=== PATIENT | female | born 1950 | race Caucasian/White ===

== ENCOUNTER 2016-10-06 19:30 | Emergency (ER) | payer OTHER ==
[~2016-10-06] VITALS: Ht 162.6 cm; Wt 62.0 kg
[~2016-10-06 19:30] MED LIST: CYMB30CA PO; TRAZ100T4 PO
[2016-10-06 19:33] VITALS: BP 165/98; PULSE 83; RESP 16; O2SAT 95
[2016-10-06] MEDS ORDERED: TRAZ150T75 PO (20:19)
[2016-10-06] MEDS ORDERED: HYDR-3534 PO (20:19)
[2016-10-06] MEDS ORDERED: DULO1CAP2 PO (20:19)
[2016-10-06] MEDS ORDERED: DULO1CAP3 PO (20:19)
--- NOTE | 2016-10-06 20:55 | PD ---
HPI Chief Complaint: Back/ Neck Pain or Injury Time Seen by Provider: 20:30 Travel History International Travel<30 days: No Contact w/Intl Traveler<30days: No Traveled to known affect area: No History of Present Illness HPI Patient comes in complaining of chronic neck pain. Patient states she's had surgery on her neck previously feels like her neck pain is not being well- controlled currently. Patient states that she has been taking her Lortab is not controlling her pain very well currently. Patient denies any fevers, drug use, numbness or tingling, trauma, change in bowel or bladder chest pain, shortness of breath, back pain, or abdominal pain.. Patient states she is occasionally incontinent has been going on for years and is unchanged. Pain is worse with certain movement. Denies any radiation of the pain. Patient states she believes she has high blood pressure but is uncertain if she is on any medication for it. History Past Medical Histgory Menopausal: Yes Hx Cancer: Yes (lung ca) Hx Chemotherapy: No Hx Radiation Therapy: No Social History Alcohol Use: No Tobacco Use: Yes Allergies-Medications (Allergen,Severity, Reaction): Coded Allergies: Codeine (Verified Allergy, Severe, NAUSEA & VOMITTING, 10/06/16) Iodinated Contrast Media (Verified Allergy, Unknown, "LEGS TURN IN", ) Reported Meds & Prescriptions Reported Meds & Active Scripts Active Reported Lortab (Hydrocodone-Acetaminophen) 7.5-325 Mg Tab 1 Tab PO Q6H PRN Trazodone (Trazodone HCl) 150 Mg Tab 200 Mg PO HS Duloxetine DR (Duloxetine HCl) 30 Mg Capdr 30 Mg PO HS Duloxetine DR (Duloxetine HCl) 60 Mg Capdr 60 Mg PO DAILY Review of Systems Except as stated in HPI: all other systems reviewed are Neg Physical Exam Narrative GENERAL: Well-developed, overly nourished, in no acute distress, and non-ill appearing. SKIN: Warm and dry. HEAD: Atraumatic. Normocephalic. EYES: Pupils equal and round. EOMI. No scleral icterus. No injection or drainage. ENT: No nasal bleeding or discharge. Mucous membranes pink and moist. NECK: Trachea midline. Supple. No nuclear rigidity. No tenderness or crepitus or midline cervical spine. Patient reports tenderness to palpation bilateral paravertebral cervical spinal muscles. CARDIOVASCULAR: Radial pulses 2+, tach, and equal bilaterally. Capillary refill less than 2 seconds. RESPIRATORY: No accessory muscle use. No respiratory distress. MUSCULOSKELETAL: No obvious deformities. No clubbing. No cyanosis. No edema. Full range of motion. Shoulder:FROM equal BL with passive flexion, extension, Abduction, Adduction, internal/external rotation, and pronation/supination. Sensation equal BL deltoid muscles. Pulses equal BL distal to injury. Capillary refill less than 2 seconds distal to injury and equal BL. FROM distal to injury and equal BL. Strength distal to injury equal BL. NV intact distal to injury equal BL. Flexion and extension of thumb equal BL. Equal strength and movement with abduction/adductions of BL fingers. Report Analyst strength equal BL. NEUROLOGICAL: Awake and alert. No obvious cranial nerve deficits. Motor grossly within normal limits. Normal speech. PSYCHIATRIC: Appropriate mood and affect; insight and judgment normal. Data Data Last Documented VS Vital Signs Date Time Temp Pulse Resp B/P Pulse Ox O2 Delivery O2 Flow Rate FiO2 10/06/16 20:20 18 10/06/16 19:33 83 165/98 95 Room Air MDM Medical Screen Exam Complete: Yes Emergency Medical Condition: No Narrative Course History and physical exam findings are not consistent with an emergent medical condition. She was given the option of receiving additional care, but has declined. Patient states she'll just follow-up with her primary care doctor tomorrow. Therefore the appropriate counseling recommendations were discussed with the patient and she was instructed to follow-up with her primary care physician as soon as possible for reevaluation. Patient was also informed of community resources from which she can obtain additional care. She is agreeable and verbalizes an understanding of the proposed plan. The patient states she will immediately return to the emergency department if her current complaints do not improve, new symptoms arise, or emergent condition develops. Patient ambulated out of the emergency department without difficulty. Primary Impression: Encounter for medical screening examination Disposition: [facility]-ED USE ONLY Condition: Stable Hansel Robison Oct 06, 2016 20:55
== END 2016-10-06 21:21 | disposition left against medical advice (07) ==
LOC: NEPB 19:30
DX: M54.2 Cervicalgia (principal); G89.29 Other chronic pain; Z72.0 Tobacco use
CPT/HCPCS: 99281

== ENCOUNTER 2016-10-09 06:55 | Emergency (ER) | payer OTHER ==
[~2016-10-09] VITALS: Ht 162.6 cm; Wt 62.0 kg
[~2016-10-09 06:55] MED LIST changes: -CYMB30CA PO; +DULO1CAP2 PO; +DULO1CAP3 PO; +HYDR-3534 PO; -TRAZ100T4 PO; +TRAZ150T75 PO
[2016-10-09 06:57] VITALS: BP 177/82; PULSE 88; RESP 16; TEMP 98; O2SAT 96
[2016-10-09] MEDS ORDERED: CYMB60CA PO (07:23)
[2016-10-09] MEDS ORDERED: VITA1000 PO (07:24)
[2016-10-09] MEDS ORDERED: LIDOCAINE HCL 1% 50 ML VIAL INFIL ONE (07:45)
[2016-10-09] MEDS ORDERED: BUPIVACAINE HCL PF 0.5% 10 ML VIAL INFIL ONE (07:45)
--- NOTE | 2016-10-09 07:46 | PD ---
HPI Chief Complaint: Skin Problem Time Seen by Provider: 07:45 Travel History International Travel<30 days: No Contact w/Intl Traveler<30days: No Traveled to known affect area: No History of Present Illness HPI 66-year-old female presents to the emergency Department with complaint of right thumb pain and a red streak up her right arm that she noticed this morning. She says she thinks she got bit by a bug on her right thumb yesterday and then noticed the streaking this morning. She denies fever, chills, nausea, vomiting. Is up-to-date on her tetanus vaccination. Denies paresthesias, loss of sensation, decreased range of motion, decreased strength to the affected extremity. Her friend gave her something for pain and she doesn't know what it was. No known relieving or aggravating factors. History of COPD. Allergies to codeine and iodinated contrast media. No other modifying factors or associated signs and symptoms. PFSH Past Medical History Autoimmune Disease: No Blood Disorders: No Anxiety: Yes Depression: Yes Heart Rhythm Problems: No Cancer: Yes (lung ca) Cardiovascular Problems: Yes (HTN) High Cholesterol: No Chemotherapy: No Chest Pain: No Congestive Heart Failure: No COPD: No Cerebrovascular Accident: No Diminished Hearing: No Endocrine: No Gastrointestinal Disorders: No GERD: No Genitourinary: No Headaches: Yes Hepatitis: No Hypertension: Yes (TAKES NO MEDS) Immune Disorder: No Kidney Stones: No Musculoskeletal: Yes Neurologic: Yes Psychiatric: No Reproductive: No Respiratory: Yes Migraines: No Myocardial Infarction: No Radiation Therapy: No Renal Failure: No Seizures: No Sickle Cell Disease: No Sleep Apnea: No Ulcer: No Menopausal: Yes Past Surgical History Abdominal Surgery: Yes AICD: No Appendectomy: No Arteriovenous Shunt: No Cardiac Surgery: No Section: Yes Cholecystectomy: No Ear Surgery: No Endocrine Surgery: No Eye Surgery: No Genitourinary Surgery: No Gynecologic Surgery: Yes (D&C,) Insulin Pump: No Joint Replacement: No Neurologic Surgery: No Oral Surgery: No Pacemaker: No Thoracic Surgery: No Tonsillectomy: Yes Other Surgery: Yes Social History Alcohol Use: No Tobacco Use: Yes Substance Use: No Allergies-Medications (Allergen,Severity, Reaction): Coded Allergies: Codeine (Verified Allergy, Severe, NAUSEA & VOMITTING, 10/06/16) Iodinated Contrast Media (Verified Allergy, Unknown, "LEGS TURN IN", ) Reported Meds & Prescriptions Reported Meds & Active Scripts Active Ibuprofen 800 Mg Tab 800 Mg PO Q6HR PRN Bactrim DS (Sulfamethoxazole-Trimethoprim) 800-160 Mg Tab 1 Tab PO BID 10 Days Keflex (Cephalexin) 500 Mg Cap 500 Mg PO Q6H 10 Days Reported Vitamin D-1000 (Cholecalciferol) 1,000 Unit Tab 1,000 Units PO DAILY Cymbalta DR (Duloxetine HCl) 60 Mg Capdr 60 Mg PO DAILY Trazodone (Trazodone HCl) 150 Mg Tab 200 Mg PO HS Review of Systems Except as stated in HPI: all other systems reviewed are Neg Physical Exam Narrative GENERAL: Well-nourished, well-developed female patient, in no acute distress; afebrile, nontoxic-appearing SKIN: There is an indurated area to the distal aspect of the right thumb which measures about 0.5 cm in diameter. It is fluctuant but there is no pointing or drainage. There is a zone of inflammation around it but no lymphangitis. There is a red streak noted going up the right arm up into the armpit. No right axillary lymphangitis. Right upper extremity is supple and non-tense with 2+ radial pulse and sensory intact without edema. HEAD: Atraumatic. Normocephalic. EYES: Pupils equal and round. No scleral icterus. No injection or drainage. ENT: Mucosa pink and moist. Airway patent. NECK: Trachea midline. CARDIOVASCULAR: Regular rate. RESPIRATORY: No accessory muscle use. GASTROINTESTINAL: Flat. MUSCULOSKELETAL: No obvious deformities. No clubbing. No cyanosis. No edema. NEUROLOGICAL: Awake and alert. Oriented 3. No obvious cranial nerve deficits. Motor grossly within normal limits. Normal speech. PSYCHIATRIC: Appropriate mood and affect; insight and judgment normal. Data Data Last Documented VS Vital Signs Date Time Temp Pulse Resp B/P Pulse Ox O2 Delivery O2 Flow Rate FiO2 10/09/16 06:57 98.0 88 16 177/82 96 Room Air Orders Bupivacaine Pf 0.5% Inj (Marcaine Pf 0.5 (10/09/16 07:45) Lidocaine 1% Inj (50 Ml) (Xylocaine 1% I (10/09/16 07:45) Wound Culture And Gram Stain (10/09/16 07:35) [facility] Medical Decision Making Medical Screen Exam Complete: Yes Emergency Medical Condition: Yes Medical Record Reviewed: Yes Differential Diagnosis Cellulitis, infected bug bite, abscess Narrative Course 66-year-old female with cellulitis to her right thumb that extends up her arm to her right armpit area. No lymphangitis in the right axilla. She is afebrile and nontoxic appearing. The right upper approximately supple and nontender 2+ radial pulse and sensory intact without edema. There is an area of fluctuance to the right thumb which I incised and drained. See my procedure note for incision and drainage. Wound culture pending. Patient is up-to-date on tetanus vaccination. Keflex, Bactrim, ibuprofen prescribed for home. Patient verbalizes understanding and agreement with treatment plan. Patient is medically cleared and stable for discharge. Discussed reasons to return to the emergency department. Instructed patient to follow up with primary care provider. Patient agrees with treatment plan. The patients vital signs are stable and the patient is stable for outpatient follow-up and treatment. Patient discharged home, stable and in no acute distress. Procedures Procedure Narrative INCISION AND DRAINAGE OF ABSCESS: The area was prepped and was sterilely draped. The right thumb was digitally blocked with 1% lidocaine and 0.5% bupivacaine. A number 11scalpel was used to make a pinpoint incision into the area of fluctuance. The abscess was drained. Cultures were obtained. Sterile dressing applied. Diagnosis Primary Impression: Cellulitis of right arm Referrals: Primary Care Physician Patient Instructions: Cellulitis (ED), General Instructions Departure Forms: Tests/Procedures, Work Release Enter return to work date: Oct 10, 2016 Additional Instructions: Complete full course of antibiotics Warm compresses to the affected area Keep area clean and dry Ibuprofen or Tylenol as directed and as needed for pain and inflammation Follow-up with primary care provider Return to emergency department immediately with worsening of symptoms Med/Other Pt SpecificInfo: Prescription(s) given Scripts Ibuprofen 800 Mg [id number] Mg PO Q6HR PRN (PAIN) #30 TAB Ref 0 Prov:Saundra AmadorP 10/09/16 Sulfamethoxazole-Trimethoprim (Bactrim DS)800-160 Mg Tab1 Tab PO BID 10 Days Ref 0 Prov:Saundra AmadorP 10/09/16 Cephalexin (Keflex)500 Mg Hol164 Mg PO Q6H 10 Days Ref 0 Prov:Saundra Amador 10/09/16 Disposition: 01 DISCHARGE HOME Condition: Stable Saundra Amador Oct 09, 2016 07:45
[2016-10-09] MEDS ORDERED: BACT800T5 PO (08:01)
[2016-10-09] MEDS ORDERED: CEPH-460 PO (08:01)
[2016-10-09] MEDS ORDERED: IBUP800T23 PO (08:01)
== END 2016-10-09 08:50 | disposition home or self-care (01) ==
LOC: NEPB 06:55
DX: L03.113 Cellulitis of right upper limb (principal); I10 Essential (primary) hypertension; Z72.0 Tobacco use; Z86.59 Personal history of other mental and behavioral disorders; Z87.09 Personal history of other diseases of the respiratory system; Z87.39 Personal history of other diseases of the musculoskeletal system and connective tissue; Z86.69 Personal history of other diseases of the nervous system and sense organs
CPT/HCPCS: 10060; 87070

== ENCOUNTER 2017-03-26 17:08 | Inpatient (IN) | payer OTHER ==
[~2017-03-26] VITALS: Ht 162.6 cm; Wt 65.0 kg
[~2017-03-26 17:08] MED LIST changes: +BACT800T5 PO; +CEPH-460 PO; +CYMB60CA PO; -DULO1CAP2 PO; -DULO1CAP3 PO; -HYDR-3534 PO; +IBUP800T23 PO; +VITA1000 PO
[2017-03-26 17:22] VITALS: BP 117/79; PULSE 78; RESP 20; TEMP 98.6; O2SAT 95
--- NOTE | 2017-03-26 17:27 | PD ---
Physical Exam Time Seen by Provider: 17:25 Narrative 66yo F c/o yellow eyes x 2-3 days. +orangish urine for 7-10 days. +abd pain x couple days. Denies hx of liver disease. Denies ETOH. Patient seen in triage. VS reviewed. Awaiting bed placement. Data Data Last Documented VS Vital Signs Date Time Temp Pulse Resp B/P (MAP) Pulse Ox O2 Delivery O2 Flow Rate FiO2 03/26/17 17:22 98.6 78 20 117/79 (92) 95 Room Air MDM Supervised Visit with KATERIN: Saundra Mccann Mar 26, 2017 17:27
[2017-03-26] MEDS ORDERED: SODIUM CHLORIDE 0.9% FLUSH 10 ML FLUSH IV FLUSH PRN ×2 (17:30→20:30)
[2017-03-26 18:17] VITALS: BP 112/67; PULSE 64; RESP 20; TEMP 98; O2SAT 96
[2017-03-26 18:20] LABS: BACTERIA, URINE RARE /hpf; BLOOD, URINE NEG (NEG); COMMENT (UR) CULT NOT INDICATED; CULTURE IF INDICATED CULT NOT INDICATED; GLUCOSE,URINE NEG (NEG); KETONE, URINE NEG (NEG); MUCUS URINE FEW /lpf (OCC); NITRITE,URINE NEG (NEG); PH, URINE 5.5 (5.0-8.5); SQUAMOUS EPITHELIAL CELL URINE 3 /hpf (0-5)
--- NOTE | 2017-03-26 18:20 | PD ---
HPI Chief Complaint: Abdominal Pain Time Seen by Provider: 18:13 Travel History International Travel<30 days: No Contact w/Intl Traveler<30days: No Traveled to known affect area: No History of Present Illness HPI 66 YO F with PMH of HTN, COPD, MDD, chronic pain presents to the ED for evaluation of 3 week history of intermittent nausea, mild abdominal pain, dark yellow/red urine. The patient states that she thought she was just dehydrated until yesterday when she visited her daughter and her daughter stated that the "whites of your eyes are turning yellow." She denies changes in bowel habits, melena, hematochezia. She does not take Tylenol or regular basis. She endorses unprotected sex with a single male partner for years. No history of IVDA. PFSH Past Medical History Autoimmune Disease: No Blood Disorders: No Anxiety: Yes Depression: Yes Heart Rhythm Problems: No Cancer: Yes (lung ca) Cardiovascular Problems: Yes (HTN) High Cholesterol: No Chemotherapy: No Chest Pain: No Congestive Heart Failure: No COPD: No Cerebrovascular Accident: No Diminished Hearing: No Endocrine: No Gastrointestinal Disorders: No GERD: No Genitourinary: No Headaches: Yes Hepatitis: No Hypertension: Yes (TAKES NO MEDS) Immune Disorder: No Kidney Stones: No Musculoskeletal: Yes Neurologic: Yes Psychiatric: No Reproductive: No Respiratory: Yes Migraines: No Myocardial Infarction: No Radiation Therapy: No Renal Failure: No Seizures: No Sickle Cell Disease: No Sleep Apnea: No Ulcer: No Menopausal: Yes Past Surgical History Abdominal Surgery: Yes AICD: No Appendectomy: No Arteriovenous Shunt: No Cardiac Surgery: No Section: Yes Cholecystectomy: No Ear Surgery: No Endocrine Surgery: No Eye Surgery: No Genitourinary Surgery: No Gynecologic Surgery: Yes (D&C,) Insulin Pump: No Joint Replacement: No Neurologic Surgery: No Oral Surgery: No Pacemaker: No Thoracic Surgery: No Tonsillectomy: Yes Other Surgery: Yes Social History Alcohol Use: No Tobacco Use: Yes Substance Use: No Allergies-Medications (Allergen,Severity, Reaction): Coded Allergies: codeine (Unverified Allergy, Severe, NAUSEA & VOMITTING, 03/10/17) Iodinated Contrast- Oral and IV Dye (Unverified Allergy, Unknown, "LEGS TURN IN", 03/10/17) Reported Meds & Prescriptions Reported Meds & Active Scripts Active Reported Lisinopril 20 Mg Tab 20 Mg PO HS Naproxen 500 Mg Tab 500 Mg PO BID Trazodone (Trazodone HCl) 100 Mg Tablet 200 Mg PO HS Hydrocodone-Acetaminophen 7.5-325 mg Tab 1 Tab PO Q6H PRN Duloxetine DR (Duloxetine HCl) 30 Mg Capdr 30 Mg PO HS Amlodipine (Amlodipine Besylate) 10 Mg Tab 10 Mg PO DAILY Review of Systems Except as stated in HPI: all other systems reviewed are Neg Physical Exam Narrative GENERAL: Well-nourished, well-developed pleasant white female in no acute distress. SKIN: Focused skin assessment warm/dry. Jaundiced. HEAD: Normocephalic. EYES: ++ scleral icterus. No injection or drainage. NECK: Supple, trachea midline. No JVD or lymphadenopathy. CARDIOVASCULAR: Regular rate and rhythm without murmurs, gallops, or rubs. RESPIRATORY: Breath sounds clear and equal bilaterally. No accessory muscle use. GASTROINTESTINAL: Abdomen soft, nondistended. Very mildly TTP in the RUQ. MUSCULOSKELETAL: No cyanosis, or edema. BACK: Nontender without obvious deformity. No CVA tenderness. Data Data Last Documented VS Vital Signs Date Time Temp Pulse Resp B/P (MAP) Pulse Ox O2 Delivery O2 Flow Rate FiO2 03/26/17 19:44 60 20 126/76 (93) 96 Room Air 03/26/17 18:17 98.0 Orders Orders Complete Blood Count With Diff (03/26/17 17:27) Comprehensive Metabolic Panel (03/26/17 17:27) Lipase (03/26/17 17:27) Prothrombin Time / Inr (Pt) (03/26/17 17:27) Act Partial Throm Time (Ptt) (03/26/17 17:27) Urinalysis - C+S If Indicated (03/26/17 17:27) Iv Access Insert/Monitor (03/26/17 17:27) Ecg Monitoring (03/26/17 17:27) Oximetry (03/26/17 17:27) Sodium Chloride 0.9% Flush (Ns Flush) (03/26/17 17:30) Admit Order (Ed Use Only) (03/26/17 20:17) Admit To Inpatient (03/26/17 ) Vital Signs (Adult) Q4H (03/26/17 20:17) Activity Oob With Assistance (03/26/17 20:17) Cylinder Die Machine Helper / Telemetry .CONTINUOUS (03/26/17 20:17) Diet Heart Healthy (03/27/17 Breakfast) Sodium Chlor 0.9% 1000 Ml Inj (Ns 1000 M (03/26/17 21:00) Sodium Chloride 0.9% Flush (Ns Flush) (03/26/17 20:30) Sodium Chloride 0.9% Flush (Ns Flush) (03/26/17 21:00) Comprehensive Metabolic Panel (03/27/17 06:00) Complete Blood Count With Diff (03/27/17 06:00) Lipase (03/27/17 06:00) Naloxone Inj (Narcan Inj) (03/26/17 20:30) Inpatient Certification (03/26/17 ) Us Abdomen Liver (03/26/17 ) Hepatitis Profile (03/26/17 20:17) Tylenol (Acetaminophen) (03/26/17 20:17) Labs Laboratory Tests Test 03/26/17 17:51 White Blood Count 7.3 TH/MM3 Red Blood Count 5.62 MIL/MM3 Hemoglobin 16.2 GM/DL Hematocrit 48.7 % Mean Corpuscular Volume 86.6 FL Mean Corpuscular Hemoglobin 28.8 PG Mean Corpuscular Hemoglobin Concent 33.3 % Red Cell Distribution Width 17.5 % Platelet Count 209 TH/MM3 Mean Platelet Volume 10.0 FL CBC Comment AUTO DIFF Differential Total Cells Counted 100 Neutrophils % (Manual) 61 % Band Neutrophils % 2 % Lymphocytes % 25 % Monocytes % 9 % Eosinophils % 2 % Basophils % 1 % Neutrophils # (Manual) 4.6 TH/MM3 Differential Comment FINAL DIFF MANUAL Platelet Estimate NORMAL Platelet Morphology Comment ENLARGED Prothrombin Time 10.9 SEC Prothromb Time International Ratio 1.0 RATIO Activated Partial Thromboplast Time 36.8 SEC Urine Color DARK-BROWN Urine Turbidity HAZY Urine pH 5.5 Urine Specific [place] 1.021 Urine Protein TRACE mg/dL Urine Glucose (UA) NEG mg/dL Urine Ketones NEG mg/dL Urine Occult Blood NEG Urine Nitrite NEG Urine Bilirubin LARGE Urine Urobilinogen 8.0 MG/DL Urine Leukocyte Esterase NEG Urine RBC 2 /hpf Urine WBC 4 /hpf Urine Squamous Epithelial Cells 3 /hpf Urine Amorphous Sediment RARE Urine Bacteria RARE /hpf Urine Mucus FEW /lpf Microscopic Urinalysis Comment CULT NOT INDICATED Blood Urea Nitrogen 7 MG/DL Creatinine 1.06 MG/DL Random Glucose 82 MG/DL Total Protein 7.5 GM/DL Albumin 3.2 GM/DL Calcium Level 9.1 MG/DL Alkaline Phosphatase 312 U/L Aspartate Amino Transf (AST/SGOT) 1499 U/L Alanine Aminotransferase (ALT/SGPT) 1090 U/L Total Bilirubin 10.0 MG/DL Sodium Level 139 MEQ/L Potassium Level 4.6 MEQ/L Chloride Level 106 MEQ/L Carbon Dioxide Level 27.9 MEQ/L Anion Gap 5 MEQ/L Lipase 341 U/L Acetaminophen Level LESS THAN 2.0 MCG/ML MDM Medical Decision Making Medical Screen Exam Complete: Yes Emergency Medical Condition: Yes Differential Diagnosis Hepatitis versus biliary obstruction versus liver failure versus other Narrative Course 66 YO F with PMH of HTN, COPD, MDD, chronic pain presents to the ED for evaluation of 3 week history of intermittent nausea, mild abdominal pain, dark yellow/red urine. The patient states that she thought she was just dehydrated until yesterday when she visited her daughter and her daughter stated that the "whites of your eyes are turning yellow." She denies changes in bowel habits, melena, hematochezia. She does not take Tylenol or regular basis. She endorses unprotected sex with a single male partner for years. No history of IVDA. Vitals reviewed. Physical exam reveals a jaundiced white female in no acute distress. There is mild right upper quadrant tenderness to palpation but the physical exam is otherwise unremarkable. CBC: WBC 7.3. Hemoglobin 16.2. Enlarged platelets. CMP: Bilirubin 10.0 AST 1499. ALT 1090. Alkaline phosphatase 312. Coags: INR 1.0 UA: Large bilirubin. 8.0 urobilinogen Tox Screen: Tylenol less than 2.0 I discussed the results of the workup with the patient. She is agreeable to admission. I spoke with Dr. Doty who agrees to accept the patient to the medicine service. Please see medicine notes for disposition. Irene Wilson Mar 26, 2017 18:20
[2017-03-26 18:21] LABS: URINE COLOR DARK-BROWN (YELLW/STRAW)
[2017-03-26 18:22] LABS: APTT (PATIENT) 36.8 SEC (24.3-30.1); PROTHROMBIN TIME - PATIENT 10.9 SEC (9.8-11.6)
[2017-03-26 18:29] LABS: HEMATOCRIT 48.7 % (35.0-46.0); MEAN CELL VOLUME 86.6 FL (80.0-100.0); MEAN CORPUSCULAR HEMOGLOBIN 28.8 PG (27.0-34.0); MEAN CORPUSCULAR HGB CONC 33.3 % (32.0-36.0); PLATELET COUNT 209 TH/MM3 (150-450); RED BLOOD COUNT 5.62 MIL/MM3 (4.00-5.30); RED CELL DISTRIBUTION WIDTH 17.5 % (11.6-17.2); WHITE BLOOD COUNT 7.3 TH/MM3 (4.0-11.0)
[2017-03-26 18:32] LABS: ANION GAP 5 MEQ/L (5-15); BICARBONATE 27.9 MEQ/L (21.0-32.0); BLOOD UREA NITROGEN 7 MG/DL (7-18); CHLORIDE 106 MEQ/L (98-107); POTASSIUM 4.6 MEQ/L (3.5-5.1); SODIUM (NA) 139 MEQ/L (136-145)
[2017-03-26 18:33] LABS: HEMO FLAGS AUTO DIFF
[2017-03-26] MEDS ORDERED: LISI-515 PO (18:37)
[2017-03-26] MEDS ORDERED: DULO1CAP3 PO (18:37)
[2017-03-26] MEDS ORDERED: HYDR-3580 PO (18:37)
[2017-03-26] MEDS ORDERED: NAPR500T PO (18:37)
[2017-03-26] MEDS ORDERED: TRAZ50TA12 PO (18:37)
[2017-03-26] MEDS ORDERED: AMLO10TA2 PO (18:37)
[2017-03-26] MEDS ORDERED: DULO1CAP2 PO (18:37)
[2017-03-26] MEDS ORDERED: TRAZ100T6 PO (18:37)
[2017-03-26 18:38] LABS: ALKALINE PHOSPHATASE 312 U/L (45-117); ALT (GPT) 1090 U/L (10-53); AST (GOT) 1499 U/L (15-37)
[2017-03-26 19:44] VITALS: BP 126/76; PULSE 60; RESP 20; O2SAT 96
[2017-03-26 19:47] LABS: BANDS 2 % (0-6); BASOPHILS 1 % (0-2); EOSINOPHILS 2 % (0-4); NEUTROPHIL # MANUAL DIFF 4.6 TH/MM3 (1.8-7.7); PLATELET ESTIMATE SMEAR NORMAL (NORMAL); POLYS (SEG NEUTROPHILS) 61 % (16-70); SCAN/DIFF FINAL DIFF MANUAL; WBC DIFF SAMPLE 100
[2017-03-26 19:48] LABS: PLATELET MORPHOLOGY ENLARGED (NORMAL)
[2017-03-26] MEDS ORDERED: NALOXONE HCL 0.4 MG/ML AMP IV PRN (20:30)
[2017-03-26 21:02] VITALS: BP 125/75; PULSE 61; RESP 20; O2SAT 97
[2017-03-26] MEDS: SODIUM CHLORIDE 0.9% FLUSH 10 ML FLUSH IV FLUSH SCH (21:02)
[2017-03-26] MEDS: SODIUM CHLOR 0.9% 1000 ML INJ 1,000 ML IV SCH (21:02)
--- NOTE | 2017-03-26 21:43 | RADRPT ---
EXAM DATE/TIME: 03/26/2017 20:35 [facility] COMPARISON: No previous studies available for comparison. INDICATIONS : Acute liver failure. MEDICAL HISTORY : Hypertension. Depression. Anxeity. Carcinoma, lung. SURGICAL HISTORY : Tonsillectomy. section. D & C. Emir placement in spine. ENCOUNTER: Initial ACUITY: 1 day PAIN SCORE: 0/10 LOCATION: Bilateral upper quadrant MEASUREMENTS: LIVER: 17.9 cm length COMMON DUCT: 5 mm RIGHT KIDNEY: 10.3 x 4.2 x 3.9 cm SPLEEN: 11.6 cm length FINDINGS: LIVER: Normal echotexture without focal lesion or ductal dilatation. There is an echogenic area in the left lobe likely related to fat in the falciform ligament region. COMMON DUCT: No intraluminal mass or stone visualized. GALLBLADDER: There is a 0.5 cm echogenic nonmobile mass seen in the gallbladder wall without distinct shadowing. T he gallbladder wall does appear thickened at 6 mm. PANCREAS: The visualized portions are within normal limits. RIGHT KIDNEY: No hydronephrosis, stone or mass. SPLEEN: No focal lesion. There appears to be an adjacent 1.7 cm splenule. CONCLUSION: 0.5 cm echogenic nonmobile non-shadowing focus within the gallbladder without shadowing. This is thou ght to most likely represent a polyp. However, a stone cannot absolutely be excluded. Typically, ston es demonstrate shadowing and are mobile. The gallbladder wall is thickened. The gallbladder wall thi ckening is nonspecific. It can be seen with generalized hepatic disease. If the patient has signs of cholecystitis, a HIDA scan could be performed. Alvaro Catalan MD on March 26, 2017 at 21:37 Board Certified Radiologist. This report was verified electronically.
[2017-03-26 21:57] VITALS: BP 122/77; PULSE 50; RESP 17; TEMP 97; O2SAT 95
[2017-03-26 22:40] VITALS: PULSE 64
[2017-03-27] VITALS: BP 139/68; PULSE 80; RESP 19; TEMP 97.6; O2SAT 94
--- NOTE | 2017-03-27 03:45 | HHI.HP ---
HPI Service [facility] Primary Care Physician Jose Victoria MD Admission Diagnosis hyperbilirubinemia, elevated LFTs Diagnoses: Chief Complaint: abdominal pain and jaundice Travel History International Travel<30 Days: No Contact w/Intl Traveler <30 Da: No Traveled to Known Affected Are: No History of Present Illness Written by JAKI Teixeira acting as scribe for [Lalitha] on 03/27/17 at 03: 34. 66 y/o female with a history of COPD, Depression, Anxiety, and HTN presented to the ED with complaints of abdominal pain and jaundice. She states she has had right lower abdominal pain for the last 10 days and for the last 2 days she had associated dark urine, and jaundice. She states her stools for black in color but it is now back to normal. She does take 1/2 a Lortab daily for chronic pain. She denies any Iv drug use or any new partners. Denies any chest pain, sob , fever or chills. Review of Systems Except as stated in HPI: all other systems reviewed are Neg Past Family Social History Past Medical History COPD Depression Anxiety HTN Past Surgical History neck surgery toe repair c section tonsillectomy Hip replacement Reported Medications Reported Meds & Active Scripts Active Reported Lisinopril 20 Mg Tab 20 Mg PO HS Naproxen 500 Mg Tab 500 Mg PO BID Trazodone (Trazodone HCl) 100 Mg Tablet 200 Mg PO HS Hydrocodone-Acetaminophen 7.5-325 mg Tab 1 Tab PO Q6H PRN Duloxetine DR (Duloxetine HCl) 30 Mg Capdr 30 Mg PO HS Amlodipine (Amlodipine Besylate) 10 Mg Tab 10 Mg PO DAILY Allergies: Coded Allergies: codeine (Unverified Allergy, Severe, NAUSEA & VOMITTING, 03/10/17) Iodinated Contrast- Oral and IV Dye (Unverified Allergy, Unknown, "LEGS TURN IN", 03/10/17) Active Ordered Medications Current Medications Medications (Trade) Dose Ordered Sig/Quita Route Start Time Stop Time Status Last Admin Sodium Chloride 1,000 ml @ 100 mls/hr Q10H IV 03/26/17 21:00 03/26/17 21:02 (NS Flush) 2 ml UNSCH PRN IV FLUSH 03/26/17 20:30 (NS Flush) 2 ml BID IV FLUSH 03/26/17 21:00 03/26/17 21:02 (Narcan Inj) 0.4 mg UNSCH PRN IV 03/26/17 20:30 Family History Dad: [place] Social History Tobacco use: 1 pack every 4 days Alcohol use: Denies Illicit drug use: Marijuana She lives alone and still continues to drive. Physical Exam Vital Signs Vital Signs Date Time Temp Pulse Resp B/P (MAP) Pulse Ox O2 Delivery O2 Flow Rate FiO2 03/27/17 00:00 97.6 80 19 139/68 (91) 94 03/26/17 21:57 97.0 50 17 122/77 (92) 95 03/26/17 21:14 03/26/17 21:02 61 20 125/75 (92) 97 Room Air 03/26/17 19:44 60 20 126/76 (93) 96 Room Air 03/26/17 18:17 21 03/26/17 18:17 98.0 64 20 112/67 (82) 96 Room Air 03/26/17 17:22 98.6 78 20 117/79 (92) 95 Room Air Physical Exam GENERAL: This is a well-nourished, well-developed patient, in no apparent distress. SKIN: No rashes, ecchymoses or lesions. Cool and dry. HEAD: Atraumatic. Normocephalic. EYES: Pupils equal round and reactive. ENT: Nose without bleeding, purulent drainage or septal hematoma.Airway patent. NECK: Trachea midline. No JVD or lymphadenopathy. Supple, nontender, no meningeal signs. CARDIOVASCULAR: Regular rate and rhythm without murmurs, gallops, or rubs. RESPIRATORY: Clear to auscultation. Breath sounds equal bilaterally. No wheezes , rales, or rhonchi. GASTROINTESTINAL: Abdomen soft, Right abdomen tenderness, nondistended. No hepato-splenomegaly, or palpable masses. No guarding. MUSCULOSKELETAL: Extremities without clubbing, cyanosis, or edema. No joint tenderness, effusion, or edema noted. No calf tenderness. NEUROLOGICAL: Awake and alert. Motor and sensory grossly within normal limits. Normal speech. Laboratory Laboratory Tests Test 03/26/17 17:51 White Blood Count 7.3 Red Blood Count 5.62 Hemoglobin 16.2 Hematocrit 48.7 Mean Corpuscular Volume 86.6 Mean Corpuscular Hemoglobin 28.8 Mean Corpuscular Hemoglobin Concent 33.3 Red Cell Distribution Width 17.5 Platelet Count 209 Mean Platelet Volume 10.0 CBC Comment AUTO DIFF Differential Total Cells Counted 100 Neutrophils % (Manual) 61 Band Neutrophils % 2 Lymphocytes % 25 Monocytes % 9 Eosinophils % 2 Basophils % 1 Neutrophils # (Manual) 4.6 Differential Comment FINAL DIFF MANUAL Platelet Estimate NORMAL Platelet Morphology Comment ENLARGED Prothrombin Time 10.9 Prothromb Time International Ratio 1.0 Activated Partial Thromboplast Time 36.8 Urine Color DARK-BROWN Urine Turbidity HAZY Urine pH 5.5 Urine Specific [place] 1.021 Urine Protein TRACE Urine Glucose (UA) NEG Urine Ketones NEG Urine Occult Blood NEG Urine Nitrite NEG Urine Bilirubin LARGE Urine Urobilinogen 8.0 Urine Leukocyte Esterase NEG Urine RBC 2 Urine WBC 4 Urine Squamous Epithelial Cells 3 Urine Amorphous Sediment RARE Urine Bacteria RARE Urine Mucus FEW Microscopic Urinalysis Comment CULT NOT INDICATED Blood Urea Nitrogen 7 Creatinine 1.06 Random Glucose 82 Total Protein 7.5 Albumin 3.2 Calcium Level 9.1 Alkaline Phosphatase 312 Aspartate Amino Transf (AST/SGOT) 1499 Alanine Aminotransferase (ALT/SGPT) 1090 Total Bilirubin 10.0 Sodium Level 139 Potassium Level 4.6 Chloride Level 106 Carbon Dioxide Level 27.9 Anion Gap 5 Lipase 341 Acetaminophen Level LESS THAN 2.0 Result Diagram: 03/26/17 1751 03/26/17 1751 Imaging Last Impressions Liver Ultrasound 03/26/17 0000 Signed Impressions: Service Date/Time: February 20:35 - CONCLUSION: 0.5 cm echogenic nonmobile non-shadowing focus within the gallbladder without shadowing. This is thought to most likely represent a polyp. However, a stone cannot absolutely be excluded. Typically, stones demonstrate shadowing and are mobile. The gallbladder wall is thickened. The gallbladder wall thickening is nonspecific. It can be seen with generalized hepatic disease. If the patient has signs of cholecystitis, a HIDA scan could be performed. Alvaro Catalan MD Capbettyi VTE Risk Assessment Caprini VTE Risk Assessment: No/Low Risk (score <= 1) Caprini Risk Assessment Model Point Value = 1 Point Value = 2 Point Value = 3 Point Value = 5 Age 41-60 Minor surgery BMI > 25 kg/m2 Swollen legs Varicose veins or History of unexplained or recurrent spontaneous Oral contraceptives or hormone replacement Sepsis (< 1 month) Serious lung disease, including pneumonia (< 1 month) Abnormal pulmonary function Acute myocardial infarction Congestive heart failure (< 1 month) History of inflammatory bowel disease Medical patient at bed rest Age 61-74 Arthroscopic surgery Major open surgery (> 45 min) Laparoscopic surgery (> 45 min) Malignancy Confined to bed (> 72 hours) Immobilizing plaster cast Central venous access Age >= 75 History of VTE Family history of VTE Factor V Leiden Prothrombin [id number] Lupus anticoagulant Anticardiolipin antibodies Elevated serum homocysteine Heparin-induced thrombocytopenia Other congenital or acquired thrombophilia Stroke (< 1 month) Elective arthroplasty Hip, pelvis, or leg fracture Acute spinal cord injury (< 1 month) Prophylaxis Regimen Total Risk Factor Score Risk Level Prophylaxis Regimen 0-1 Low Early ambulation 2 Moderate Order ONE of the following: *Sequential Compression Device (SCD) *Heparin 5000 units SQ BID 3-4 Higher Order ONE of the following medications: *Heparin 5000 units SQ TID *Enoxaparin/Lovenox 40 mg SQ daily (WT < 150 kg, CrCl > 30 mL/min) *Enoxaparin/Lovenox 30 mg SQ daily (WT < 150 kg, CrCl > 10-29 mL/min) *Enoxaparin/Lovenox 30 mg SQ BID (WT < 150 kg, CrCl > 30 mL/min) AND/OR *Sequential Compression Device (SCD) 5 or more Highest Order ONE of the following medications: *Heparin 5000 units SQ TID (Preferred with Epidurals) *Enoxaparin/Lovenox 40 mg SQ daily (WT < 150 kg, CrCl > 30 mL/min) *Enoxaparin/Lovenox 30 mg SQ daily (WT < 150 kg, CrCl > 10-29 mL/min) *Enoxaparin/Lovenox 30 mg SQ BID (WT < 150 kg, CrCl > 30 mL/min) AND *Sequential Compression Device (SCD) Assessment and Plan Problem List: (1) Acute liver failure ICD Code: K72.00 - Acute and subacute hepatic failure without coma (2) HTN (hypertension) ICD Code: I10 - Essential (primary) hypertension Assessment and Plan 66 y/o female with a history of COPD, Depression, Anxiety, and HTN presented to the ED with complaints of abdominal pain and jaundice. Acute Liver Failure, AST 1499, ALT 1090, acetaminophen less than 2.0, bilirubin 10 Liver US reviewed and showed 0.5 cm echogenic nonmobile shadowing focus within the gallbladder without shadowing, most likely represents a polyp, however a stone cannot be absolutely be excluded. Gallbladder is thickened. -Consult GI for recommendations -Hepatitis profile ordered -IVF for hydration -Pain management IV morphine -CMP in AM HTN, chronic -Resume home medication lisinopril and Norvasc Depression and Anxiety, chronic -Resume home medications DVT prophylaxis: SCDs This note was transcribed by scribe [Lilibeth Urban]. I, Dr. Kathryn Doty personally performed the history, physical exam, and medical decision making; and confirmed the accuracy of the information in the transcribed note. Authenticated by Dr. Kathryn Doty on 03/27/17 at 03:34. Discussed Condition With Patient, ER provider and RN Physician Certification 2 Midnight Certification Type: Admission for Inpatient Services Order for Inpatient Services The services are ordered in accordance with Medicare regulations or non- Medicare payer requirements, as applicable. In the case of services not specified as inpatient-only, they are appropriately provided as inpatient services in accordance with the 2-midnight benchmark. Estimated LOS (days): 2 days is the estimated time the patient will need to remain in the hospital, assuming treatment plan goals are met and no additional complications. Post-Hospital Plan: [place] Lilibeth Urban Mar 27, 2017 03:45 Kathryn Doty MD Mar 27, 2017 09:32
[2017-03-27 04:00] VITALS: BP 214/79; PULSE 65; RESP 17; TEMP 98.3; O2SAT 98
[2017-03-27] MEDS ORDERED: DULoxetine HCl DR 20 MG CAP PO ONE (04:00)
[2017-03-27] MEDS ORDERED: traZODone HCL 50 MG TAB PO ONE (04:00)
[2017-03-27] MEDS ORDERED: MORPHINE SULFATE 4 MG/ML INJ IV PUSH PRN (04:15)
[2017-03-27] MEDS: SODIUM CHLOR 0.9% 1000 ML INJ 1,000 ML IV SCH (06:15)
[2017-03-27 08:00] VITALS: BP 119/76; PULSE 63; RESP 17; TEMP 95.7; O2SAT 94
[2017-03-27 08:17] LABS: HEMATOCRIT 44.7 % (35.0-46.0); MEAN CELL VOLUME 86.5 FL (80.0-100.0); MEAN CORPUSCULAR HEMOGLOBIN 27.9 PG (27.0-34.0); MEAN CORPUSCULAR HGB CONC 32.3 % (32.0-36.0); PLATELET COUNT 182 TH/MM3 (150-450); RED BLOOD COUNT 5.17 MIL/MM3 (4.00-5.30); RED CELL DISTRIBUTION WIDTH 17.3 % (11.6-17.2); WHITE BLOOD COUNT 5.7 TH/MM3 (4.0-11.0)
[2017-03-27 08:26] LABS: HEMO FLAGS AUTO DIFF
[2017-03-27 08:45] LABS: ALT (GPT) 893 U/L (10-53); ANION GAP 5 MEQ/L (5-15); BLOOD UREA NITROGEN 6 MG/DL (7-18); CHLORIDE 107 MEQ/L (98-107); GLOMERULAR FILTRATION RATE 72 ML/MIN (>89); POTASSIUM 3.9 MEQ/L (3.5-5.1); SODIUM (NA) 138 MEQ/L (136-145)
[2017-03-27 08:59] LABS: ALKALINE PHOSPHATASE 256 U/L (45-117); AST (GOT) 1184 U/L (15-37); TOTAL BILIRUBIN ADULT 9.3 MG/DL (0.2-1.0)
[2017-03-27] MEDS: SODIUM CHLORIDE 0.9% FLUSH 10 ML FLUSH IV FLUSH SCH (09:00)
[2017-03-27 09:04] LABS: BANDS 3 % (0-6); EOSINOPHILS 4 % (0-4); NEUTROPHIL # MANUAL DIFF 3.4 TH/MM3 (1.8-7.7); PLATELET ESTIMATE SMEAR NORMAL (NORMAL); PLATELET MORPHOLOGY NORMAL (NORMAL); POLYS (SEG NEUTROPHILS) 57 % (16-70); SCAN/DIFF FINAL DIFF MANUAL; WBC DIFF SAMPLE 100
[2017-03-27] MEDS ORDERED: FAMOTIDINE 20 MG TAB PO SCH (09:30)
--- NOTE | 2017-03-27 09:35 | HHI.PR ---
Subjective Remarks 66 y/o female with a history of COPD, Depression, Anxiety, and HTN presented to the ED with complaints of abdominal pain and jaundice. She states she has had right lower abdominal pain for the last 10 days and for the last 2 days she had associated dark urine, and jaundice. She states her stools for black in color but it is now back to normal. She does take 1/2 a Lortab daily for chronic pain. She denies any Iv drug use or any new partners. Denies any chest pain, sob , fever or chills. 03-27 Will order an MRCP consult gastroenterology Await hepatitis profile A.m. labs Continue home medications except for pain control Switch to IV pain meds Objective Vitals Vital Signs Date Time Temp Pulse Resp B/P (MAP) Pulse Ox O2 Delivery O2 Flow Rate FiO2 03/27/17 04:00 98.3 65 17 214/79 (124) 98 03/27/17 00:00 97.6 80 19 139/68 (91) 94 03/26/17 22:40 64 03/26/17 21:57 97.0 50 17 122/77 (92) 95 03/26/17 21:14 03/26/17 21:02 61 20 125/75 (92) 97 Room Air 03/26/17 19:44 60 20 126/76 (93) 96 Room Air 03/26/17 18:17 21 03/26/17 18:17 98.0 64 20 112/67 (82) 96 Room Air 03/26/17 17:22 98.6 78 20 117/79 (92) 95 Room Air I/O 03/26/17 03/26/17 03/26/17 03/27/17 03/27/17 03/27/17 07:00 15:00 23:00 07:00 15:00 23:00 Intake Total 1307 ml Balance 1307 ml Intake Oral 480 ml IV Total 827 ml # Voids 2 # Bowel Movements 0 Result Diagram: 03/27/1772603/27/17726 Other Results Laboratory Tests Test 03/26/17 17:51 03/27/17 07:27 White Blood Count 7.3 TH/MM3 5.7 TH/MM3 Red Blood Count 5.62 MIL/MM3 5.17 MIL/MM3 Hemoglobin 16.2 GM/DL 14.5 GM/DL Hematocrit 48.7 % 44.7 % Mean Corpuscular Volume 86.6 FL 86.5 FL Mean Corpuscular Hemoglobin 28.8 PG 27.9 PG Mean Corpuscular Hemoglobin Concent 33.3 % 32.3 % Red Cell Distribution Width 17.5 % 17.3 % Platelet Count 209 TH/MM3 182 TH/MM3 Mean Platelet Volume 10.0 FL 9.8 FL CBC Comment AUTO DIFF AUTO DIFF Differential Total Cells Counted 100 100 Neutrophils % (Manual) 61 % 57 % Band Neutrophils % 2 % 3 % Lymphocytes % 25 % 23 % Monocytes % 9 % 13 % Eosinophils % 2 % 4 % Basophils % 1 % Neutrophils # (Manual) 4.6 TH/MM3 3.4 TH/MM3 Differential Comment FINAL DIFF MANUAL FINAL DIFF MANUAL Platelet Estimate NORMAL NORMAL Platelet Morphology Comment ENLARGED NORMAL Prothrombin Time 10.9 SEC Prothromb Time International Ratio 1.0 RATIO Activated Partial Thromboplast Time 36.8 SEC Urine Color DARK-BROWN Urine Turbidity HAZY Urine pH 5.5 Urine Specific [place] 1.021 Urine Protein TRACE mg/dL Urine Glucose (UA) NEG mg/dL Urine Ketones NEG mg/dL Urine Occult Blood NEG Urine Nitrite NEG Urine Bilirubin LARGE Urine Urobilinogen 8.0 MG/DL Urine Leukocyte Esterase NEG Urine RBC 2 /hpf Urine WBC 4 /hpf Urine Squamous Epithelial Cells 3 /hpf Urine Amorphous Sediment RARE Urine Bacteria RARE /hpf Urine Mucus FEW /lpf Microscopic Urinalysis Comment CULT NOT INDICATED Blood Urea Nitrogen 7 MG/DL 6 MG/DL Creatinine 1.06 MG/DL 0.80 MG/DL Random Glucose 82 MG/DL 85 MG/DL Total Protein 7.5 GM/DL 6.0 GM/DL Albumin 3.2 GM/DL 2.4 GM/DL Calcium Level 9.1 MG/DL 8.0 MG/DL Alkaline Phosphatase 312 U/L 256 U/L Aspartate Amino Transf (AST/SGOT) 1499 U/L 1184 U/L Alanine Aminotransferase (ALT/SGPT) 1090 U/L 893 U/L Total Bilirubin 10.0 MG/DL 9.3 MG/DL Sodium Level 139 MEQ/L 138 MEQ/L Potassium Level 4.6 MEQ/L 3.9 MEQ/L Chloride Level 106 MEQ/L 107 MEQ/L Carbon Dioxide Level 27.9 MEQ/L 26.0 MEQ/L Anion Gap 5 MEQ/L 5 MEQ/L Lipase 341 U/L 336 U/L Acetaminophen Level LESS THAN 2.0 MCG/ML Red Cell Morphology Comment NORMAL Estimat Glomerular Filtration Rate 72 ML/MIN Imaging Last Impressions Liver Ultrasound 03/26/17 0000 Signed Impressions: Service Date/Time: February 20:35 - CONCLUSION: 0.5 cm echogenic nonmobile non-shadowing focus within the gallbladder without shadowing. This is thought to most likely represent a polyp. However, a stone cannot absolutely be excluded. Typically, stones demonstrate shadowing and are mobile. The gallbladder wall is thickened. The gallbladder wall thickening is nonspecific. It can be seen with generalized hepatic disease. If the patient has signs of cholecystitis, a HIDA scan could be performed. Alvaro Catalan MD Objective Remarks GENERAL: Awake alert and oriented talkative and cooperative SKIN: Warm and dry. Some jaundice HEAD: Atraumatic. Normocephalic. EYES: Pupils equal and round. Some scleral icterus. No injection or drainage. ENT: No nasal bleeding or discharge. Mucous membranes pink and moist. Tongue is midline NECK: Trachea midline. No JVD. Supple CARDIOVASCULAR: Regular rate and rhythm. S1-S2 no S3 or S4 no heave or thrill or rub or gallop RESPIRATORY: No accessory muscle use. Clear to auscultation. Breath sounds equal bilaterally. GASTROINTESTINAL: Abdomen soft, non-tender, nondistended. Hepatic and splenic margins not palpable. MUSCULOSKELETAL: Extremities without clubbing, cyanosis, or edema. No obvious deformities. NEUROLOGICAL: Awake and alert. No obvious cranial nerve deficits. Motor grossly within normal limits. Five out of 5 muscle strength in the arms and legs. Normal speech. PSYCHIATRIC: Appropriate mood and affect; insight and judgment normal. Medications and IVs Current Medications Sodium Chloride (NS Flush) 2 ml UNSCH PRN IV FLUSH FLUSH AFTER USING IV ACCESS ; Start 03/26/17 at 17:30; Stop 03/26/17 at 20:33; Status DC Sodium Chloride 1,000 ml @ 100 mls/hr Q10H IV Last administered on 03/27/17t 06 :15; Start 03/26/17 at 21:00 Sodium Chloride (NS Flush) 2 ml UNSCH PRN IV FLUSH FLUSH AFTER USING IV ACCESS ; Start 03/26/17 at 20:30 Sodium Chloride (NS Flush) 2 ml BID IV FLUSH Last administered on 03/26/17 21: 02; Start 03/26/17 at 21:00 Naloxone HCl (Narcan Inj) 0.4 mg UNSCH PRN IV SEE LABEL COMMENTS; Start at 20:30 Amlodipine Besylate (Norvasc) 10 mg DAILY PO ; Start 03/27/17 at 09:00 Duloxetine HCl (Cymbalta Dr) 30 mg HS PO ; Start 03/27/17 at 21:00 Lisinopril (Prinivil) 20 mg HS PO ; Start 03/27/17 at 21:00 Trazodone HCl (Desyrel) 200 mg HS PO ; Start 03/27/17 at 21:00 Trazodone HCl (Desyrel) 200 mg ONCE ONCE PO ; Start 03/27/17 at 04:00; Stop 03/27 at 04:01; Status DC Duloxetine HCl (Cymbalta Dr) 30 mg ONCE ONCE PO Last administered on 03/27/17 05:01; Start 03/27/17 at 04:00; Stop 03/27/17 at 04:01; Status DC Morphine Sulfate (Morphine Inj) 2 mg Q3H PRN IV PUSH pain >5; Start 03/27/17 at 04:15 Urinary Catheter: No Vascular Central Line Catheter: No A/P Problem List: (1) Acute liver failure ICD Code: K72.00 - Acute and subacute hepatic failure without coma (2) HTN (hypertension) ICD Code: I10 - Essential (primary) hypertension Assessment and Plan 66 y/o female with a history of COPD, Depression, Anxiety, and HTN presented to the ED with complaints of abdominal pain and jaundice. Acute Liver Failure, AST 1499, ALT 1090, acetaminophen less than 2.0, bilirubin 10 Liver US reviewed and showed 0.5 cm echogenic nonmobile shadowing focus within the gallbladder without shadowing, most likely represents a polyp, however a stone cannot be absolutely be excluded. Gallbladder is thickened. -Consult GI for recommendations -Hepatitis profile ordered -IVF for hydration -Pain management IV morphine -CMP in AM Order MRCP HTN, chronic -Resume home medication lisinopril and Norvasc Depression and Anxiety, chronic -Resume home medications Has chronic pain medications at home that contain Tylenol. Make morphine available A.m. labs Continue on SCDs and MANI hose DVT prophylaxis: SCDs Romel Diaz DO Mar 27, 2017 09:35
--- NOTE | 2017-03-27 15:33 | RADRPT ---
EXAM DATE/TIME: 03/27/2017 12:28 [facility] COMPARISON: No previous studies available for comparison. INDICATIONS : Abdominal pain. Jaundice. MEDICAL HISTORY : Hypertension. Carcinoma, lung. SURGICAL HISTORY : section. spinal fixation. ENCOUNTER: Subsequent ACUITY: 2 day PAIN SCORE: 3/10 LOCATION: abdomen TECHNIQUE: Multiplanar, multisequence magnetic resonance imaging of the abdomen was performed. High-resolution 3D dataset was utilized to reconstruct maximum-intensity projection (MIP) images. FINDINGS: There is marked gallbladder wall thickening with some pericholecystic fluid evident. There is very m ild intrahepatic biliary duct dilatation. On single projection there is a tiny focal defect present that does not persist on other studies. This could be artifact or tiny stones. Trace ascites is noted. Mild edema is seen in the lesser sac around the pancreas. Minimal proximal small bowel wall thickening is evident. Kidneys are unremarkable. CONCLUSION: Markedly abnormal gallbladder with gallbladder wall thickening. Small stones cannot be excluded. Pr ominent common duct with possible distal duct stone. Romel Costello MD FACR on March 27, 2017 at 15:27 Board Certified Radiologist. This report was verified electronically.
[2017-03-27] MEDS ORDERED: DULoxetine HCl DR 30 MG CAP PO SCH (21:00)
[2017-03-27] MEDS ORDERED: traZODone HCL 100 MG TAB PO SCH (21:00)
[2017-03-27] MEDS ORDERED: LISINOPRIL 20 MG TAB PO SCH (21:00)
[2017-03-28] MEDS ORDERED: DULO1CAP3 PO (13:11)
== END 2017-03-27 14:53 | disposition left against medical advice (07) | DRG 443 ==
LOC: NEPC 17:08 → UNDOADMOB 20:20 → NEDA 20:20 → OBSVTOIN 20:22 → NEDA 20:22 → N06B 21:28
PROVIDERS: ADMIT Hospitalist; ATTEND Hospitalist
DX: K72.00 Acute and subacute hepatic failure without coma (principal); I10 Essential (primary) hypertension; J44.9 Chronic obstructive pulmonary disease, unspecified; F32.9 Major depressive disorder, single episode, unspecified; F17.210 Nicotine dependence, cigarettes, uncomplicated; F41.9 Anxiety disorder, unspecified; G89.29 Other chronic pain; Z85.118 Personal history of other malignant neoplasm of bronchus and lung; Z96.649 Presence of unspecified artificial hip joint
CPT/HCPCS: 74181; 76377; 76705; 80053; 80074; 80307; 81001; 83690; 85007; 85027; 85610; 85730; 99285; J7030

== ENCOUNTER 2017-03-28 12:40 | Inpatient (IN) | payer OTHER ==
[~2017-03-28] VITALS: Ht 165.1 cm; Wt 63.2 kg
[~2017-03-28 12:40] MED LIST changes: +AMLO10TA2 PO; -BACT800T5 PO; -CEPH-460 PO; -CYMB60CA PO; +DULO1CAP2 PO; +HYDR-3580 PO; -IBUP800T23 PO; +LISI-515 PO; +NAPR500T PO; +TRAZ100T6 PO; -TRAZ150T75 PO; -VITA1000 PO
[2017-03-28 12:41] VITALS: BP 112/70; PULSE 91; RESP 15; TEMP 97.7; O2SAT 98
--- NOTE | 2017-03-28 13:09 | PD ---
HPI Chief Complaint: Abnormal Results Time Seen by Provider: 12:52 Travel History International Travel<30 days: No Contact w/Intl Traveler<30days: No Traveled to known affect area: No History of Present Illness HPI This is a 66 year-old woman who presented to the emergency department 2 days ago with abdominal pain it's been ongoing for a week or so, and jaundice. She had workup that showed liver failure with elevated total bilirubin, AST ALT, hepatitis B studies were positive, and was admitted to the hospital where she had imaging that appeared to show choledocholithiasis and obstructive symptoms. She had a GI consult place but left the hospital AMA prior to seeing the physician because she had arrange for care of her service dog. She is a history of COPD, depression and anxiety, as well as arthritis. She takes opiates regularly, but not daily. She does not drink alcohol. She is no history of liver or gallbladder problems. No other complaints. History Past Medical History Narrative Medical COPD Depression/anxiety Arthritis, regular pain medications Menopausal: Yes Social History Alcohol Use: No Tobacco Use: Yes Allergies-Medications (Allergen,Severity, Reaction): Coded Allergies: codeine (Unverified Allergy, Severe, NAUSEA & VOMITTING, 03/28/17) Iodinated Contrast- Oral and IV Dye (Unverified Allergy, Unknown, "LEGS TURN IN", 03/28/17) Reported Meds & Prescriptions Reported Meds & Active Scripts Active Reported Duloxetine DR (Duloxetine HCl) 60 Mg Capdr 60 Mg PO DAILY Lisinopril 20 Mg Tab 20 Mg PO HS Naproxen 500 Mg Tab 500 Mg PO BID Trazodone (Trazodone HCl) 100 Mg Tablet 200 Mg PO HS Hydrocodone-Acetaminophen 7.5-325 mg Tab 1 Tab PO Q6H PRN Duloxetine DR (Duloxetine HCl) 30 Mg Capdr 30 Mg PO HS Amlodipine (Amlodipine Besylate) 10 Mg Tab 10 Mg PO DAILY Review of Systems Except as stated in HPI: all other systems reviewed are Neg Physical Exam Narrative GENERAL: Well-appearing 66 year-old woman, no acute distress. SKIN: Focused skin assessment warm/dry. HEAD: Atraumatic. Normocephalic. EYES: Pupils equal and round. Scleral icterus. ENT: No nasal bleeding or discharge. Mucous membranes pink and moist. NECK: Trachea midline. No JVD. CARDIOVASCULAR: Regular rate and rhythm. No murmur appreciated. RESPIRATORY: No accessory muscle use. Clear to auscultation. Breath sounds equal bilaterally. GASTROINTESTINAL: Abdomen is flat and soft. No significant tenderness. MUSCULOSKELETAL: No obvious deformities. No edema. NEUROLOGICAL: Awake and alert. No obvious cranial nerve deficits. Motor grossly within normal limits. Normal speech. PSYCHIATRIC: Appropriate mood and affect; insight and judgment normal. Data Data Last Documented VS Vital Signs Date Time Temp Pulse Resp B/P (MAP) Pulse Ox O2 Delivery O2 Flow Rate FiO2 03/28/17 13:11 64 20 91/54 (66) 97 Room Air 03/28/17 12:41 97.7 Orders Orders Complete Blood Count With Diff (03/28/17 12:54) Comprehensive Metabolic Panel (03/28/17 12:54) Iv Access Insert/Monitor (03/28/17 12:54) Act Partial Throm Time (Ptt) (03/28/17 13:08) Prothrombin Time / Inr (Pt) (03/28/17 13:08) Consult Gastroenterology (03/28/17 ) Admit Order (Ed Use Only) (03/28/17 ) MDM Medical Decision Making Medical Screen Exam Complete: Yes Emergency Medical Condition: Yes Differential Diagnosis Biliary obstruction, choledocholithiasis, cholecystitis, cholangitis, viral hepatitis, liver failure, other Narrative Course Medical decision-making new 66 year-old woman with obstructive jaundice likely related to choledocholithiasis. Hepatitis B studies were also elevated. She denies history of immunization she is not real sure. She looks otherwise well. We'll plan on readmission, consult GI. Physician Communication Physician Communication Spoke with Dr. Villarreal: Will consult on patient. Roel Kelley MD Mar 28, 2017 13:09
[2017-03-28 13:11] VITALS: BP 91/54; PULSE 64; RESP 20; O2SAT 97
[2017-03-28] MEDS ORDERED: DULO1CAP3 PO (13:11)
[2017-03-28 13:47] LABS: HEMATOCRIT 42.7 % (35.0-46.0); MEAN CORPUSCULAR HEMOGLOBIN 28.7 PG (27.0-34.0); MEAN CORPUSCULAR HGB CONC 33.3 % (32.0-36.0); PLATELET COUNT 209 TH/MM3 (150-450); RED BLOOD COUNT 4.96 MIL/MM3 (4.00-5.30); RED CELL DISTRIBUTION WIDTH 17.7 % (11.6-17.2); WHITE BLOOD COUNT 7.8 TH/MM3 (4.0-11.0)
[2017-03-28 13:48] LABS: HEMO FLAGS AUTO DIFF
[2017-03-28] MEDS ORDERED: SODIUM CHLORIDE 0.9% FLUSH 10 ML FLUSH IV FLUSH PRN (14:00)
[2017-03-28 14:06] LABS: ANION GAP 10 MEQ/L (5-15); BICARBONATE 24.2 MEQ/L (21.0-32.0); CHLORIDE 107 MEQ/L (98-107); GLOMERULAR FILTRATION RATE 61 ML/MIN (>89); POTASSIUM 3.8 MEQ/L (3.5-5.1); SODIUM (NA) 141 MEQ/L (136-145)
[2017-03-28 14:07] LABS: APTT (PATIENT) 37.3 SEC (24.3-30.1); BLOOD UREA NITROGEN 7 MG/DL (7-18); PROTHROMBIN TIME - PATIENT 11.4 SEC (9.8-11.6)
[2017-03-28 14:13] LABS: ALKALINE PHOSPHATASE 280 U/L (45-117); ALT (GPT) 892 U/L (10-53); AST (GOT) 1163 U/L (15-37); TOTAL BILIRUBIN ADULT 11.9 MG/DL (0.2-1.0)
[2017-03-28 14:16] LABS: BANDS 1 % (0-6); NEUTROPHIL # MANUAL DIFF 6.3 TH/MM3 (1.8-7.7); PLATELET ESTIMATE SMEAR NORMAL (NORMAL); PLATELET MORPHOLOGY NORMAL (NORMAL); POLYS (SEG NEUTROPHILS) 80 % (16-70); SCAN/DIFF FINAL DIFF MANUAL; WBC DIFF SAMPLE 100
[2017-03-28] MEDS: LACTATED RINGER'S 1000 ML INJ 1,000 ML IV SCH ×2 (14:32→23:53)
[2017-03-28 14:49] VITALS: BP 114/58; PULSE 67; RESP 18; O2SAT 97
[2017-03-28 15:54] VITALS: BP 95/58
[2017-03-28 16:10] VITALS: BP 105/52; PULSE 55; RESP 17; TEMP 97.5; O2SAT 95
--- NOTE | 2017-03-28 17:13 | HHI.HP ---
[facility] Primary Care Physician Jose Victoria MD Admission Diagnosis obstructive jaundice, choledocholithiasis Diagnoses: Chief Complaint: I came back to finish getting better after dropping off my dog Travel History International Travel<30 Days: No Contact w/Intl Traveler <30 Da: No Traveled to Known Affected Are: No History of Present Illness 66-year-old white female being admitted for jaundice and common bile duct obstruction. Patient was originally admitted on 03/27 with this problem with her history at the time being that " right lower abdominal pain for the last 10 days and for the last 2 days she had associated dark urine, and jaundice. She states her stools for black in color but it is now back to normal. She does take 1/2 a Lortab daily for chronic pain. She denies any Iv drug use or any new partners. Denies any chest pain, sob, fever or chills." She had an MRCP done the report of which which was suggestive of abnormal gallbladder wall thickening with mild intrahepatic biliary duct dilatation. Her LFTs at that time suggested acute hepatic failure with AST 1499, ALT 1090, acetaminophen less than 2.0, bilirubin 10. Gastroenterology had been consulted and an ERCP was in the works however the patient needed to care for her dog and drop them off so she left AGAINST MEDICAL ADVICE and returned today to finish getting worked up. She states that in between her leaving yesterday and her returning today, she had no worsening of her symptoms, still had chronic abdominal pain, minimal to no nausea, no vomiting, no fevers. Says her jaundice did worsen, normal formed bowel movements, with no diarrhea. Daughter is present at the bedside. Past Family Social History Allergies: Coded Allergies: Iodinated Contrast- Oral and IV Dye (Unverified Allergy, Unknown, "LEGS TURN IN", 03/28/17) codeine (Unverified Adverse Reaction, Severe, NAUSEA & VOMITTING, 03/28/17) Physical Exam Vital Signs Vital Signs Date Time Temp Pulse Resp B/P (MAP) Pulse Ox O2 Delivery O2 Flow Rate FiO2 03/28/17 16:10 97.5 55 17 105/52 (69) 95 03/28/17 15:54 72 18 95/58 (70) 97 03/28/17 14:49 67 18 114/58 (76) 97 Room Air 03/28/17 13:11 64 20 91/54 (66) 97 Room Air 03/28/17 12:41 97.7 91 15 112/70 (84) 98 Physical Exam GENERAL: This is a well-nourished, well-developed patient, in no apparent distress. SKIN: No rashes, ecchymoses or lesions. Cool and dry. HEAD: Atraumatic. Normocephalic. No temporal or scalp tenderness. EYES: Pupils equal round and reactive. Extraocular motions intact. No scleral icterus. No injection or drainage. ENT: Nose without bleeding, purulent drainage or septal hematoma. Throat without erythema, tonsillar hypertrophy or exudate. Uvula midline. Airway patent. NECK: Trachea midline. No JVD or lymphadenopathy. Supple, nontender, no meningeal signs. CARDIOVASCULAR: Regular rate and rhythm without murmurs, gallops, or rubs. RESPIRATORY: Clear to auscultation. Breath sounds equal bilaterally. No wheezes , rales, or rhonchi. GASTROINTESTINAL: Abdomen soft, non-tender, nondistended. No hepato-splenomegaly , or palpable masses. No guarding. MUSCULOSKELETAL: Extremities without clubbing, cyanosis, or edema. No joint tenderness, effusion, or edema noted. No calf tenderness. Negative Homans sign bilaterally. NEUROLOGICAL: Awake and alert. Cranial nerves II through XII intact. Motor and sensory grossly within normal limits. Five out of 5 muscle strength in all muscle groups. Normal speech. Laboratory Laboratory Tests Test 03/28/17 13:00 White Blood Count 7.8 Red Blood Count 4.96 Hemoglobin 14.2 Hematocrit 42.7 Mean Corpuscular Volume 86.0 Mean Corpuscular Hemoglobin 28.7 Mean Corpuscular Hemoglobin Concent 33.3 Red Cell Distribution Width 17.7 Platelet Count 209 Mean Platelet Volume 9.6 CBC Comment AUTO DIFF Differential Total Cells Counted 100 Neutrophils % (Manual) 80 Band Neutrophils % 1 Lymphocytes % 10 Monocytes % 9 Neutrophils # (Manual) 6.3 Differential Comment FINAL DIFF MANUAL Platelet Estimate NORMAL Platelet Morphology Comment NORMAL Red Cell Morphology Comment NORMAL Prothrombin Time 11.4 Prothromb Time International Ratio 1.0 Activated Partial Thromboplast Time 37.3 Blood Urea Nitrogen 7 Creatinine 0.92 Random Glucose 96 Total Protein 6.7 Albumin 2.7 Calcium Level 8.5 Alkaline Phosphatase 280 Aspartate Amino Transf (AST/SGOT) 1163 Alanine Aminotransferase (ALT/SGPT) 892 Total Bilirubin 11.9 Sodium Level 141 Potassium Level 3.8 Chloride Level 107 Carbon Dioxide Level 24.2 Anion Gap 10 Estimat Glomerular Filtration Rate 61 Result Diagram: 03/28/17 1300 03/28/17 1300 Caprini VTE Risk Assessment Caprini VTE Risk Assessment: Mod/High Risk (score >= 2) Caprini Risk Assessment Model Point Value = 1 Point Value = 2 Point Value = 3 Point Value = 5 Age 41-60 Minor surgery BMI > 25 kg/m2 Swollen legs Varicose veins or History of unexplained or recurrent spontaneous Oral contraceptives or hormone replacement Sepsis (< 1 month) Serious lung disease, including pneumonia (< 1 month) Abnormal pulmonary function Acute myocardial infarction Congestive heart failure (< 1 month) History of inflammatory bowel disease Medical patient at bed rest Age 61-74 Arthroscopic surgery Major open surgery (> 45 min) Laparoscopic surgery (> 45 min) Malignancy Confined to bed (> 72 hours) Immobilizing plaster cast Central venous access Age >= 75 History of VTE Family history of VTE Factor V Leiden Prothrombin [id number] Lupus anticoagulant Anticardiolipin antibodies Elevated serum homocysteine Heparin-induced thrombocytopenia Other congenital or acquired thrombophilia Stroke (< 1 month) Elective arthroplasty Hip, pelvis, or leg fracture Acute spinal cord injury (< 1 month) Prophylaxis Regimen Total Risk Factor Score Risk Level Prophylaxis Regimen 0-1 Low Early ambulation 2 Moderate Order ONE of the following: *Sequential Compression Device (SCD) *Heparin 5000 units SQ BID 3-4 Higher Order ONE of the following medications: *Heparin 5000 units SQ TID *Enoxaparin/Lovenox 40 mg SQ daily (WT < 150 kg, CrCl > 30 mL/min) *Enoxaparin/Lovenox 30 mg SQ daily (WT < 150 kg, CrCl > 10-29 mL/min) *Enoxaparin/Lovenox 30 mg SQ BID (WT < 150 kg, CrCl > 30 mL/min) AND/OR *Sequential Compression Device (SCD) 5 or more Highest Order ONE of the following medications: *Heparin 5000 units SQ TID (Preferred with Epidurals) *Enoxaparin/Lovenox 40 mg SQ daily (WT < 150 kg, CrCl > 30 mL/min) *Enoxaparin/Lovenox 30 mg SQ daily (WT < 150 kg, CrCl > 10-29 mL/min) *Enoxaparin/Lovenox 30 mg SQ BID (WT < 150 kg, CrCl > 30 mL/min) AND *Sequential Compression Device (SCD) Assessment and Plan Assessment and Plan Liver US reviewed and showed 0.5 cm echogenic nonmobile shadowing focus within the gallbladder without shadowing, most likely represents a polyp, however a stone cannot be absolutely be excluded. Gallbladder is thickened. -GI consulted, anticipate ERCP -Hepatitis profile ordered -IVF for hydration -Pain management w/ IV morphine -CMP in AM HTN, chronic -given B/D lownormal BP, will hold off on meds for now Depression and Anxiety, chronic -Resume home medications of cymbalta and trazodone chronic pain - stopping home tylenol containing meds, will use only morphine as above Will administer lovenox for DVT prophlyaxis, needs to be held at least 12 hrs prior to any ERCP or Gi procedure. DVT prophylaxis: SCDs Physician Certification 2 Midnight Certification Type: Admission for Inpatient Services Order for Inpatient Services The services are ordered in accordance with Medicare regulations or non- Medicare payer requirements, as applicable. In the case of services not specified as inpatient-only, they are appropriately provided as inpatient services in accordance with the 2-midnight benchmark. Estimated LOS (days): 3 3 days is the estimated time the patient will need to remain in the hospital, assuming treatment plan goals are met and no additional complications. Post-Hospital Plan: Home Venkatesh Crenshaw MD Mar 28, 2017 17:13
--- NOTE | 2017-03-28 17:53 | PD.CONS ---
HPI History of Present Illness This is a 66 year old female patient who complains of abdominal pain for a few weeks, right sided, moderate in severity and aching in character. No associated vomiting. No fever or chills. Associated yellow color developed in her skin a few days prior to admission. Denies blood in stool. Never told she has liver disease. She does drink alcohol in moderation and smokes pot but never used IV drugs and never had hepatitis. She has been sleepy lately and is sleepy now. ROS: No rash, chest pain, SOB, headache. No joint pains. Otherwise complete ros is negative. PFSH Past Medical History No diabetes Past Surgical History Never had colonoscopy Coded Allergies: Iodinated Contrast- Oral and IV Dye (Unverified Allergy, Unknown, "LEGS TURN IN", 03/28/17) codeine (Unverified Adverse Reaction, Severe, NAUSEA & VOMITTING, 03/28/17) Medications Current Medications Medications (Trade) Dose Ordered Sig/Quita Route Start Time Stop Time Status Last Admin Lactated Ringer's 1,000 ml @ 100 mls/hr Q10H IV 03/28/17 14:00 03/28/17 14:32 (NS Flush) 2 ml UNSCH PRN IV FLUSH 03/28/17 14:00 (NS Flush) 2 ml BID IV FLUSH 03/28/17 21:00 (Morphine Inj) 2 mg Q6HR PRN IV PUSH 03/28/17 17:15 Family History No FH of colon cancer or gastric cancer. Social History Smokes cigarettes. GI Exam Vitals I&O Vital Signs Date Time Temp Pulse Resp B/P (MAP) Pulse Ox O2 Delivery O2 Flow Rate FiO2 03/28/17 16:10 97.5 55 17 105/52 (69) 95 03/28/17 15:54 72 18 95/58 (70) 97 03/28/17 14:49 67 18 114/58 (76) 97 Room Air 03/28/17 13:11 64 20 91/54 (66) 97 Room Air 03/28/17 12:41 97.7 91 15 112/70 (84) 98 Laboratory Test 03/28/17 13:00 White Blood Count 7.8 TH/MM3 Red Blood Count 4.96 MIL/MM3 Hemoglobin 14.2 GM/DL Hematocrit 42.7 % Mean Corpuscular Volume 86.0 FL Mean Corpuscular Hemoglobin 28.7 PG Mean Corpuscular Hemoglobin Concent 33.3 % Red Cell Distribution Width 17.7 % Platelet Count 209 TH/MM3 Mean Platelet Volume 9.6 FL CBC Comment AUTO DIFF Differential Total Cells Counted 100 Neutrophils % (Manual) 80 % Band Neutrophils % 1 % Lymphocytes % 10 % Monocytes % 9 % Neutrophils # (Manual) 6.3 TH/MM3 Differential Comment FINAL DIFF MANUAL Platelet Estimate NORMAL Platelet Morphology Comment NORMAL Red Cell Morphology Comment NORMAL Prothrombin Time 11.4 SEC Prothromb Time International Ratio 1.0 RATIO Activated Partial Thromboplast Time 37.3 SEC Blood Urea Nitrogen 7 MG/DL Creatinine 0.92 MG/DL Random Glucose 96 MG/DL Total Protein 6.7 GM/DL Albumin 2.7 GM/DL Calcium Level 8.5 MG/DL Alkaline Phosphatase 280 U/L Aspartate Amino Transf (AST/SGOT) 1163 U/L Alanine Aminotransferase (ALT/SGPT) 892 U/L Total Bilirubin 11.9 MG/DL Sodium Level 141 MEQ/L Potassium Level 3.8 MEQ/L Chloride Level 107 MEQ/L Carbon Dioxide Level 24.2 MEQ/L Anion Gap 10 MEQ/L Estimat Glomerular Filtration Rate 61 ML/MIN Physical Examination HEENT: Pupils round and reactive to light; normocephalic; atraumatic; jaundiced Throat is clear. NECK: Neck is supple, no JVD, no lymphadenopathy. CHEST: Chest is clear to auscultation and percussion. CARDIAC: Regular rate and rhythm with no murmur gallop or rubs. ABDOMEN: Soft, nondistended, nontender; no hepatosplenomegaly; bowel sounds are present in all four quadrants. EXTREMITIES: No clubbing, cyanosis, or edema. SKIN: Faint rash on arms TREE P[employer]: No focal deficits; alert and oriented times three. Assessment and Plan Plan Imp: Jaundice, with bilirubin rising. Right sided abdominal pain, mild bile duct dilatation without definite stone on MRCP Stone vs polyp in gallbladder Rec: CT abdoman and pelvis Will probably need ERCP keep NPO after midnight. Hepatitis profile ACMILO, AMA ferritin If ERCP neg will need liver biopsy. Franky Villarreal MD Mar 28, 2017 17:53
[2017-03-28 20:00] VITALS: BP 112/58; PULSE 66; PULSE 71; RESP 16; TEMP 98.1; O2SAT 94
[2017-03-28] MEDS: SODIUM CHLORIDE 0.9% FLUSH 10 ML FLUSH IV FLUSH SCH (21:00)
[2017-03-28] MEDS: traZODone HCL 100 MG TAB PO SCH (21:41)
[2017-03-28] MEDS: DULoxetine HCl DR 30 MG CAP PO SCH (21:41)
[2017-03-28] MEDS: MORPHINE SULFATE 4 MG/ML INJ IV PUSH PRN (21:54)
[2017-03-29] VITALS (8 sets, daily range): BP systolic 94–117; BP diastolic 51–66; PULSE 64–79; RESP 16–18; TEMP 96.6–98.4; O2SAT 92–94
[2017-03-29] MEDS ORDERED: INSULIN HUMAN REGULAR 1,000 UNITS/10 ML VIAL SQ PRN (05:15)
[2017-03-29] MEDS ORDERED: CHLORHEXIDINE GLUCONATE 2 % 1 PACK (2 CLOTHS) TOPICAL PRN (05:15)
[2017-03-29] MEDS ORDERED: POVIDONE IODINE 5% (ANTISEPSIS KIT) 4 APPLICATIONS EACH NARE PRN (05:15)
[2017-03-29] MEDS ORDERED: LACTATED RINGER'S 1000 ML IV PRN (05:15)
[2017-03-29] MEDS ORDERED: SODIUM CHLORID 0.9% 500 ML IV PRN (05:15)
[2017-03-29 07:16] LABS: ALKALINE PHOSPHATASE 242 U/L (45-117); TOTAL BILIRUBIN ADULT 9.9 MG/DL (0.2-1.0)
[2017-03-29 07:17] LABS: ALT (GPT) 730 U/L (10-53); ANION GAP 7 MEQ/L (5-15); AST (GOT) 941 U/L (15-37); BICARBONATE 24.3 MEQ/L (21.0-32.0); CHLORIDE 111 MEQ/L (98-107); GLOMERULAR FILTRATION RATE 69 ML/MIN (>89); POTASSIUM 3.8 MEQ/L (3.5-5.1); SODIUM (NA) 142 MEQ/L (136-145)
[2017-03-29 07:23] LABS: BLOOD UREA NITROGEN 5 MG/DL (7-18)
--- NOTE | 2017-03-29 08:55 | EKG ---
Date Performed: 03/29/2017 Time Performed: 05:57:14 PTAGE: 66 years EKG: Sinus bradycardia. Prolonged QT interval Possible inferior infarct - age undetermined Abnor mal ECG PREVIOUS TRACING : 07/18/2010 12.07 DOCTOR: Roel Dykes Interpretating Date/Time 03/29/2017 08:53:28
[2017-03-29] MEDS: DULoxetine HCl DR 60 MG CAP PO SCH (09:57)
[2017-03-29] MEDS: SODIUM CHLORIDE 0.9% FLUSH 10 ML FLUSH IV FLUSH SCH ×2 (09:57→22:54)
[2017-03-29] MEDS: LACTATED RINGER'S 1000 ML INJ 1,000 ML IV SCH ×2 (09:58→22:55)
[2017-03-29] MEDS: ENOXAPARIN SODIUM 30 MG/0.3 ML SYRINGE SQ SCH ×2 (10:00→10:57)
--- NOTE | 2017-03-29 10:38 | HHI.GIFU ---
Subjective Remarks Patient reports sharp pain in right upper quadrant but she is hungry. No nausea. She has positive serology for acute hepatitis B. She has a partner that she has been with for years. No needles. I educated her on what to expect with viral hepatitis B. Objective Vitals I&O Vital Signs Date Time Temp Pulse Resp B/P (MAP) Pulse Ox O2 Delivery O2 Flow Rate FiO2 03/29/17 07:18 97.2 64 16 104/58 (73) 93 03/29/17 04:00 98.0 68 16 110/65 (80) 94 03/29/17 00:00 98.4 75 16 94/51 (65) 92 03/28/17 20:00 98.1 71 16 112/58 (76) 94 03/28/17 20:00 66 03/28/17 16:10 97.5 55 17 105/52 (69) 95 03/28/17 15:54 72 18 95/58 (70) 97 03/28/17 14:49 67 18 114/58 (76) 97 Room Air 03/28/17 13:11 64 20 91/54 (66) 97 Room Air 03/28/17 12:41 97.7 91 15 112/70 (84) 98 I/O 03/28/17 03/28/17 03/28/17 03/29/17 03/29/17 03/29/17 07:00 15:00 23:00 07:00 15:00 23:00 Intake Total 480 ml 0 ml Balance 480 ml 0 ml Intake Oral 480 ml 0 ml # Voids 1 2 # Bowel Movements 0 0 Laboratory Laboratory Tests Test 03/28/17 13:00 03/28/17 19:23 03/29/17 06:34 White Blood Count 7.8 Red Blood Count 4.96 Hemoglobin 14.2 Hematocrit 42.7 Mean Corpuscular Volume 86.0 Mean Corpuscular Hemoglobin 28.7 Mean Corpuscular Hemoglobin Concent 33.3 Red Cell Distribution Width 17.7 Platelet Count 209 Mean Platelet Volume 9.6 CBC Comment AUTO DIFF Differential Total Cells Counted 100 Neutrophils % (Manual) 80 Band Neutrophils % 1 Lymphocytes % 10 Monocytes % 9 Neutrophils # (Manual) 6.3 Differential Comment FINAL DIFF MANUAL Platelet Estimate NORMAL Platelet Morphology Comment NORMAL Red Cell Morphology Comment NORMAL Prothrombin Time 11.4 Prothromb Time International Ratio 1.0 Activated Partial Thromboplast Time 37.3 Blood Urea Nitrogen 7 5 Creatinine 0.92 0.83 Random Glucose 96 79 Total Protein 6.7 5.8 Albumin 2.7 2.2 Calcium Level 8.5 8.0 Alkaline Phosphatase 280 242 Aspartate Amino Transf (AST/SGOT) 1163 941 Alanine Aminotransferase (ALT/SGPT) 892 730 Total Bilirubin 11.9 9.9 Sodium Level 141 142 Potassium Level 3.8 3.8 Chloride Level 107 111 Carbon Dioxide Level 24.2 24.3 Anion Gap 10 7 Estimat Glomerular Filtration Rate 61 69 Ferritin 694 Physical Exam HEENT: Pupils round and reactive to light; normocephalic; atraumatic; improved jaundice. Throat is clear. NECK: Neck is supple, no JVD, no lymphadenopathy. CHEST: Chest is clear to auscultation and percussion. CARDIAC: Regular rate and rhythm with no murmur gallop or rubs. ABDOMEN: Soft, nondistended, nontender; no hepatosplenomegaly; bowel sounds are present in all four quadrants. EXTREMITIES: No clubbing, cyanosis, or edema. SKIN: Normal; minimal rash [employer]: No focal deficits; alert and oriented times three. Assessment and Plan Plan Imp: Jaundice, with bilirubin rising. Right sided abdominal pain, mild bile duct dilatation without definite stone on MRCP Stone vs polyp in gallbladder Positive serology for hepatitis B. Rec: - Cancel plans for ERCP - Pt has Hepatitis B. - LFTs are improving now and bilirubin is coming down. -OK for discharge if she tolerated food today. Franky Villarreal MD Mar 29, 2017 10:38
[2017-03-29] MEDS: MORPHINE SULFATE 4 MG/ML INJ IV PUSH PRN (11:11)
[2017-03-29] MEDS ORDERED: HYDROcodone/IBUPROFEN 7.5MG/200MG TAB PO PRN (14:00)
--- NOTE | 2017-03-29 14:41 | HHI.PR ---
Subjective Remarks Follow-up on hepatitis, jaundice, , patient says pain is somewhat better, is able to eat. Objective Vital Signs Date Time Temp Pulse Resp B/P (MAP) Pulse Ox O2 Delivery O2 Flow Rate FiO2 03/29/17 07:18 97.2 64 16 104/58 (73) 93 03/29/17 04:00 98.0 68 16 110/65 (80) 94 03/29/17 00:00 98.4 75 16 94/51 (65) 92 03/28/17 20:00 98.1 71 16 112/58 (76) 94 03/28/17 20:00 66 03/28/17 16:10 97.5 55 17 105/52 (69) 95 03/28/17 15:54 72 18 95/58 (70) 97 03/28/17 14:49 67 18 114/58 (76) 97 Room Air I/O 03/28/17 03/28/17 03/28/17 03/29/17 03/29/17 03/29/17 07:00 15:00 23:00 07:00 15:00 23:00 Intake Total 480 ml 0 ml Balance 480 ml 0 ml Intake Oral 480 ml 0 ml # Voids 1 2 # Bowel Movements 0 0 Result Diagram: 03/28/17 1300 03/29/17 0634 Objective Remarks Gen.: No acute distress, lying in bed Abdomen: Soft, moderately-severely tenderness to palpation, positive bowel sounds, nondistended, no rebound Skin: Substantial jaundice A/P Assessment and Plan Abdominal pain - secondary to hepatitis B (acute) - improved, will switch over from IV to by mouth medications, will have to cancel Vicoprofen and switch over to by mouth morphine since the patient seems to have dyspepsia with just aspirin in the past Jaundice - secondary to hepatitis Hepatitis B - continue IV fluids, was receiving IV morphine for pain control this morning is well, we'll now transition to pain control by mouth, by mouth diet as tolerated, trend enzymes in AM HTN, chronic -given B/D lownormal BP, will continue to hold off on meds for now Depression and Anxiety, chronic -Continue home medications of cymbalta and trazodone chronic pain - will use only morphine as above lovenox for DVT prophlyaxis Discharge Planning d/c anticipated 03/30 Venkatesh Crenshaw MD Mar 29, 2017 14:41
[2017-03-29] MEDS: MORPHINE SULFATE 15 MG TAB PO PRN (18:32)
[2017-03-29] MEDS: traZODone HCL 100 MG TAB PO SCH (22:46)
[2017-03-29] MEDS: DULoxetine HCl DR 30 MG CAP PO SCH (22:54)
[2017-03-30] MEDS: MORPHINE SULFATE 15 MG TAB PO PRN ×2 (02:42→11:46)
[2017-03-30 04:08] VITALS: BP 94/55; PULSE 70; RESP 17; TEMP 97; O2SAT 92
[2017-03-30 08:00] VITALS: BP 104/55; PULSE 66; RESP 17; TEMP 96.2; O2SAT 91
[2017-03-30] MEDS: DULoxetine HCl DR 60 MG CAP PO SCH (08:55)
[2017-03-30] MEDS: SODIUM CHLORIDE 0.9% FLUSH 10 ML FLUSH IV FLUSH SCH (08:56)
[2017-03-30] MEDS: LACTATED RINGER'S 1000 ML INJ 1,000 ML IV SCH (08:57)
[2017-03-30] MEDS ORDERED: MSIR15 PO (10:34)
--- NOTE | 2017-03-30 10:37 | HHI.DCPOC ---
Discharge Care Plan Goals to Promote Your Health * To prevent worsening of your condition and complications * To maintain your health at the optimal level Given your history of stomach pains with aspirin, do not take any other nonsteroidal anti-inflammatory drugs including but not limited to ibuprofen, Advil, Aleve, naproxen, Naprosyn, BC powders. Given your liver malfunction, you can also not take anything that contains acetaminophen or Tylenol in it. Drink at least 8 glasses of water every day to try to flush her system is much as possible and take pain medications as prescribed only as needed to make the pain somewhat bearable. Directions to Meet Your Goals Take your medications as prescribed Follow your dietary instruction Follow activity as directed Keep your appointments as scheduled Take your immunizations and boosters as scheduled If your symptoms worsen call your PCP, if no PCP go to Urgent Care Center or Emergency Room Smoking is Dangerous to Your Health. Avoid second hand smoke Call the 24-hour hour crisis hotline for domestic abuse at Venkatesh Crenshaw MD Mar 30, 2017 10:37
--- NOTE | 2017-03-30 10:42 | HHI.DS ---
Discharge Summary Admission Date Mar 28, 2017 at 13:34 Discharge Date: Mar 30, 2017 Admitting Diagnosis obstructive jaundice, choledocholithiasis (1) Acute hepatitis B ICD Code: B16.9 - Acute hepatitis B without delta-agent and without hepatic coma (2) Acute liver failure ICD Code: K72.00 - Acute and subacute hepatic failure without coma Procedures None Brief History - From Admission 66-year-old white female being admitted for jaundice and common bile duct obstruction. Patient was originally admitted on 03/27 with this problem with her history at the time being that " right lower abdominal pain for the last 10 days and for the last 2 days she had associated dark urine, and jaundice. She states her stools for black in color but it is now back to normal. She does take 1/2 a Lortab daily for chronic pain. She denies any Iv drug use or any new partners. Denies any chest pain, sob, fever or chills." She had an MRCP done the report of which which was suggestive of abnormal gallbladder wall thickening with mild intrahepatic biliary duct dilatation. Her LFTs at that time suggested acute hepatic failure with AST 1499, ALT 1090, acetaminophen less than 2.0, bilirubin 10. Gastroenterology had been consulted and an ERCP was in the works however the patient needed to care for her dog and drop them off so she left AGAINST MEDICAL ADVICE and returned today to finish getting worked up. She states that in between her leaving yesterday and her returning today, she had no worsening of her symptoms, still had chronic abdominal pain, minimal to no nausea, no vomiting, no fevers. Says her jaundice did worsen, normal formed bowel movements, with no diarrhea. Daughter is present at the bedside. CBC/BMP: 03/28/17 1300 03/29/17 0634 Significant Findings Laboratory Tests Test 03/28/17 13:00 03/28/17 19:23 03/29/17 06:34 Red Cell Distribution Width 17.7 % (11.6-17.2) Neutrophils % (Manual) 80 % (16-70) Monocytes % 9 % (0-8) Activated Partial Thromboplast Time 37.3 SEC (24.3-30.1) Albumin 2.7 GM/DL (3.4-5.0) 2.2 GM/DL (3.4-5.0) Alkaline Phosphatase 280 U/L (45-117) 242 U/L (45-117) Aspartate Amino Transf (AST/SGOT) 1163 U/L (15-37) 941 U/L (15-37) Alanine Aminotransferase (ALT/SGPT) 892 U/L (10-53) 730 U/L (10-53) Total Bilirubin 11.9 MG/DL (0.2-1.0) 9.9 MG/DL (0.2-1.0) Estimat Glomerular Filtration Rate 61 ML/MIN (>89) 69 ML/MIN (>89) Ferritin 694 NG/ML (8-252) Blood Urea Nitrogen 5 MG/DL (7-18) Total Protein 5.8 GM/DL (6.4-8.2) Calcium Level 8.0 MG/DL (8.5-10.1) Chloride Level 111 MEQ/L (98-107) Hospital Course Patient was admitted started on IV fluids. Initially it was thought that she might have choledochal type of obstruction, however her hepatitis B markers returned positive for an acute infection and ERCP was canceled per gastroenterology. Patient was treated with supportive care until she was able to tolerate diet well without any further nausea vomiting with tolerable pain on by mouth medications. Patient was counseled on avoiding all medications that contained acetaminophen/Tylenol and given her history of dyspepsia with NSAIDs, she was also instructed to avoid all NSAID medication. Patient has not maximal benefit from hospitalization and is clinically stable for discharge. Pt Condition on Discharge: Stable Discharge Disposition: Discharge Home Discharge Time: > 30 minutes Discharge Instructions DIET: Follow Instructions for: Liver Disease Diet Activities you can perform: Regular-No Restrictions Follow up Referrals: Gastroenterology - 2 Weeks with Franky Villarreal MD PCP Follow-up - 10 Days New Medications: Morphine IR (Morphine IR) 15 Mg Tab 15 MG PO Q8HR PRN for PAIN, #90 TAB 0 Refills Continued Medications: Duloxetine DR (Duloxetine DR) 30 Mg Capdr 30 MG PO HS, #30 CAP [address] (Duloxetine DR) 60 Mg Capdr 60 MG PO DAILY, #30 CAP 0 Refills Trazodone (Trazodone) 100 Mg Tablet 200 MG PO HS for Control Depression, #30 TAB 0 Refills Discontinued Medications: Amlodipine (Amlodipine) 10 Mg Tab 10 MG PO DAILY for Blood Pressure Management, #30 TAB 0 Refills Hydrocodone-Acetaminophen (Hydrocodone-Acetaminophen) 7.5-325 mg Tab 1 TAB PO Q6H PRN for PAIN, TAB 0 Refills Lisinopril (Lisinopril) 20 Mg Tab 20 MG PO HS, #30 TAB 0 Refills Naproxen (Naproxen) 500 Mg Tab 500 MG PO BID, #60 TAB 0 Refills Venkatesh Crenshaw MD Mar 30, 2017 10:42
[2017-03-30] MEDS: ENOXAPARIN SODIUM 30 MG/0.3 ML SYRINGE SQ SCH (11:52)
== END 2017-03-30 12:19 | disposition home or self-care (01) | DRG 441 ==
LOC: NEPC 12:40 → NEDA 13:34 → N06B 16:16
PROVIDERS: ADMIT Hospitalist; ATTEND Hospitalist
DX: B16.9 Acute hepatitis B without delta-agent and without hepatic coma (principal); K72.00 Acute and subacute hepatic failure without coma; I10 Essential (primary) hypertension; F32.9 Major depressive disorder, single episode, unspecified; J44.9 Chronic obstructive pulmonary disease, unspecified; F17.210 Nicotine dependence, cigarettes, uncomplicated; F41.9 Anxiety disorder, unspecified; M19.90 Unspecified osteoarthritis, unspecified site; G89.29 Other chronic pain
CPT/HCPCS: 80053; 82728; 83520; 85007; 85027; 85610; 85730; 86038; 93005; 99285; J1650; J2270; J7120

== ENCOUNTER 2017-04-09 15:26 | Observation (INO) | payer OTHER ==
[~2017-04-09] VITALS: Ht 165.1 cm; Wt 60.0 kg
[~2017-04-09 15:26] MED LIST changes: -AMLO10TA2 PO; +DULO1CAP3 PO; -HYDR-3580 PO; -LISI-515 PO; +MSIR15 PO; -NAPR500T PO
[2017-04-09 15:38] VITALS: BP 127/77; PULSE 95; RESP 16; TEMP 98.8; O2SAT 97
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
[2017-04-09] MEDS ORDERED: SODIUM CHLORIDE 0.9% FLUSH 10 ML FLUSH IVF PRN (16:00)
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
[2017-04-09 16:15] LABS: AUTOMATED NEUTROPHIL # 6.6 TH/MM3 (1.8-7.7); BASOPHIL # 0.1 TH/MM3 (0-0.2); BASOPHIL % 1.4 % (0.0-2.0); EOSINOPHIL # 0.1 TH/MM3 (0-0.4); EOSINOPHIL % 1.2 % (0.0-4.0); LYMPH % 15.3 % (9.0-44.0); LYMPHOCYTE # 1.4 TH/MM3 (1.0-4.8); MEAN CORPUSCULAR HEMOGLOBIN 29.2 PG (27.0-34.0); MEAN CORPUSCULAR HGB CONC 33.6 % (32.0-36.0); MONO % 10.6 % (0.0-8.0); NEUT % 71.5 % (16.0-70.0); PLATELET COUNT 312 TH/MM3 (150-450); RED BLOOD COUNT 4.25 MIL/MM3 (4.00-5.30); RED CELL DISTRIBUTION WIDTH 18.3 % (11.6-17.2); WHITE BLOOD COUNT 9.3 TH/MM3 (4.0-11.0)
[2017-04-09 16:16] LABS: HEMO FLAGS AUTO DIFF
[2017-04-09 16:27] LABS: BLOOD GAS BASE EXCESS 1.2 mmol/L (-2-2); BLOOD GAS HCO3 24 mmol/L (22-26); BLOOD GAS METHEMOGLOBIN 0.6 % (0-2); BLOOD GAS O2 HGB SATURATION 92 % (90-100); BLOOD GAS OXYGEN CONTENT 15.4 Vol % (12.0-20.0); BLOOD GAS PCO2 32 mmHg (38-42); BLOOD GAS PO2 78 mmHG (61-120); BLOOD GAS TOTAL HGB 11.9 G/DL (12.0-16.0); CRITICAL VALUE NO; DRAW SITE RT RADIAL; FIO2 21 %; NUMBER OF ARTERIAL PUNCTURES 1; OXYGEN DEVICE ROOM AIR; STAT YES; TEMP CORR TO 98.6
[2017-04-09 16:37] LABS: BICARBONATE 24.7 MEQ/L (21.0-32.0); CALCIUM-PROTEIN CORRECTED 7.6 MG/DL (8.5-10.1); POTASSIUM 3.5 MEQ/L (3.5-5.1); TOTAL BILIRUBIN ADULT 3.9 MG/DL (0.2-1.0)
[2017-04-09 16:56] LABS: PLATELET ESTIMATE SMEAR NORMAL (NORMAL); PLATELET MORPHOLOGY NORMAL (NORMAL); SCAN/DIFF AUTO DIFF CONFIRMED
[2017-04-09] MEDS ORDERED: LISI10TA3 PO (17:09)
[2017-04-09 17:24] LABS: BACTERIA, URINE MOD /hpf; BLOOD, URINE NEG (NEG); COMMENT (UR) CULTURE INDICATED; CULTURE IF INDICATED CULTURE INDICATED; GLUCOSE,URINE NEG (NEG); KETONE, URINE NEG (NEG); NITRITE,URINE NEG (NEG); URINE COLOR DARK-YELLOW (YELLW/STRAW)
[2017-04-09 17:37] LABS: APTT (PATIENT) 27.3 SEC (24.3-30.1); PROTHROMBIN TIME - PATIENT 11.3 SEC (9.8-11.6)
[2017-04-09 17:58] LABS: CREATINE KINASE 109 U/L (26-192)
[2017-04-09 18:10] LABS: CKMB 1.1 NG/ML (0.5-3.6)
[2017-04-09] MEDS ORDERED: PIPERACIL-TAZO 4.5 GM PREMIX 100 ML IV STA (18:16)
[2017-04-09] MEDS ORDERED: BISACODYL 10 MG SUPP RECTAL PRN (19:00)
[2017-04-09] MEDS ORDERED: ACETAMINOPHEN 325 MG TAB PO PRN (19:00)
[2017-04-09] MEDS ORDERED: NALOXONE HCL 0.4 MG/ML AMP IV PUSH PRN (19:00)
[2017-04-09] MEDS ORDERED: LACTULOSE SYRUP 20 GM/30 ML CUP PO PRN (19:00)
[2017-04-09] MEDS ORDERED: SODIUM CHLORIDE 0.9% FLUSH 10 ML FLUSH IV FLUSH PRN (19:00)
[2017-04-09] MEDS ORDERED: MAGNESIUM HYDROXIDE SUSP 30 ML CUP PO PRN (19:00)
[2017-04-09] MEDS ORDERED: ONDANSETRON HCL 4 MG/2 ML VIAL IVP PRN (19:00)
[2017-04-09] MEDS ORDERED: SENNOSIDES 8.6 MG TAB PO PRN (19:00)
--- NOTE | 2017-04-09 19:00 | PD ---
Physical Exam Date Seen by Provider: Apr 09, 2017 Time Seen by Provider: 17:00 Narrative I, Dr. Gonzalez, have reviewed the advance practice practitioner's documentation and am in agreement, met with the patient face to face, made the diagnosis, and the medical decision making was done by me. *My assessment and Findings: Patient seen and evaluated by me with nurse practitioner, please see nurse practitioner's note for further details. Here for syncopal episode, not feeling well for several days. She was recently admitted for hepatic failure secondary to hepatitis B. Lab work is indicating significant UTI. IV antibiotics were initiated after cultures were drawn. Chest x-ray was unremarkable. She does not have focal neurological deficits. At this point, case was discussed with Dr. Murray for admission for IV antibiotics. Data Data Last Documented VS Vital Signs Date Time Temp Pulse Resp B/P (MAP) Pulse Ox O2 Delivery O2 Flow Rate FiO2 04/09/17 16:00 18 Room Air 04/09/17 15:38 98.8 95 127/77 (94) 97 Orders Orders Electrocardiogram (04/09/17 15:41) Complete Blood Count With Diff (04/09/17 15:41) Comprehensive Metabolic Panel (04/09/17 15:41) Iv Access Insert/Monitor (04/09/17 15:41) Ckmb (Isoenzyme) Profile (04/09/17 15:49) Troponin I (04/09/17 15:49) Act Partial Throm Time (Ptt) (04/09/17 15:49) Prothrombin Time / Inr (Pt) (04/09/17 15:49) Urinalysis - C+S If Indicated (04/09/17 15:49) Chest, Single Ap (04/09/17 15:49) Ecg Monitoring (04/09/17 15:49) Oximetry (04/09/17 15:49) Sodium Chloride 0.9% Flush (Ns Flush) (04/09/17 16:00) Arterial Blood Gas (Abg) (04/09/17 ) Ct Brain W/O Iv Contrast(Rout) (04/09/17 17:22) Urine Culture (04/09/17 16:34) CKMB (04/09/17 15:47) CKMB% (04/09/17 15:47) Blood Culture (04/09/17 18:16) Lactic Acid Sepsis Protocol (04/09/17 18:16) Piperacil-Tazo 4.5 Gm Premix (Zosyn 4.5 (04/09/17 18:16) Admit Order (Ed Use Only) (04/09/17 18:57) Labs Laboratory Tests Test 04/09/17 15:47 04/09/17 16:17 04/09/17 16:34 04/09/17 16:43 White Blood Count 9.3 TH/MM3 Red Blood Count 4.25 MIL/MM3 Hemoglobin 12.4 GM/DL Hematocrit 37.0 % Mean Corpuscular Volume 87.0 FL Mean Corpuscular Hemoglobin 29.2 PG Mean Corpuscular Hemoglobin Concent 33.6 % Red Cell Distribution Width 18.3 % Platelet Count 312 TH/MM3 Mean Platelet Volume 9.2 FL Neutrophils (%) (Auto) 71.5 % Lymphocytes (%) (Auto) 15.3 % Monocytes (%) (Auto) 10.6 % Eosinophils (%) (Auto) 1.2 % Basophils (%) (Auto) 1.4 % Neutrophils # (Auto) 6.6 TH/MM3 Lymphocytes # (Auto) 1.4 TH/MM3 Monocytes # (Auto) 1.0 TH/MM3 Eosinophils # (Auto) 0.1 TH/MM3 Basophils # (Auto) 0.1 TH/MM3 CBC Comment AUTO DIFF Differential Comment AUTO DIFF CONFIRMED Platelet Estimate NORMAL Platelet Morphology Comment NORMAL Red Cell Morphology Comment NORMAL Blood Urea Nitrogen 8 MG/DL Creatinine 1.05 MG/DL Random Glucose 92 MG/DL Total Protein 6.6 GM/DL Albumin 2.0 GM/DL Calcium Level 7.3 MG/DL Alkaline Phosphatase 143 U/L Aspartate Amino Transf (AST/SGOT) 64 U/L Alanine Aminotransferase (ALT/SGPT) 64 U/L Total Bilirubin 3.9 MG/DL Sodium Level 143 MEQ/L Potassium Level 3.5 MEQ/L Chloride Level 111 MEQ/L Carbon Dioxide Level 24.7 MEQ/L Anion Gap 7 MEQ/L Estimat Glomerular Filtration Rate 53 ML/MIN Protein Corrected Calcium 7.6 MG/DL Total Creatine Kinase 109 U/L Creatine Kinase MB 1.1 NG/ML Troponin I LESS THAN 0.02 NG/ML Blood Gas Puncture Site RT RADIAL Blood Gas Patient Temperature 98.6 Blood Gas HCO3 24 mmol/L Blood Gas Base Excess 1.2 mmol/L Blood Gas Oxygen Saturation 92 % Arterial Blood pH 7.49 Arterial Blood Partial Pressure CO2 32 mmHg Arterial Blood Partial Pressure O2 78 mmHG Arterial Blood Oxygen Content 15.4 Vol % Arterial Blood Carboxyhemoglobin 4.0 % Arterial Blood Methemoglobin 0.6 % Blood Gas Hemoglobin 11.9 G/DL Oxygen Delivery Device ROOM AIR Blood Gas Inspired Oxygen 21 % Urine Color DARK-YELLOW Urine Turbidity HAZY Urine pH 6.0 Urine Specific [place] 1.010 Urine Protein TRACE mg/dL Urine Glucose (UA) NEG mg/dL Urine Ketones NEG mg/dL Urine Occult Blood NEG Urine Nitrite NEG Urine Bilirubin NEG Urine Urobilinogen GREATER THAN 12.0 MG/DL Urine Leukocyte Esterase LARGE Urine RBC 1 /hpf Urine WBC 81 /hpf Urine WBC Clumps OCC Urine Bacteria MOD /hpf Microscopic Urinalysis Comment CULTURE INDICATED Prothrombin Time 11.3 SEC Prothromb Time International Ratio 1.0 RATIO Activated Partial Thromboplast Time 27.3 SEC [facility] Medical Record Reviewed: Yes Supervised Visit with KATERIN: Yes Sepsis Criteria SIRS Criteria (2 or more): Heart rate over 90 Sepsis Criteria (SIRS+source): Infect source susp/known Diagnosis Primary Impression: Syncope Qualified Codes: R55 - Syncope and collapse Additional Impression: UTI (urinary tract infection) Admitting Information Admitting Physician Requests: Admit Condition: Stable Johnathan Gonzalez MD Apr 09, 2017 19:00
--- NOTE | 2017-04-09 19:18 | RADRPT ---
EXAM DATE/TIME: 04/09/2017 18:37 [facility] COMPARISON: No previous studies available for comparison. INDICATIONS : Syncopal episode. RADIATION DOSE: 30.41 CTDIvol (mGy) MEDICAL HISTORY : Hypertension. Carcinoma, lung. Carcinoma, breast. SURGICAL HISTORY : None. ENCOUNTER: Initial ACUITY: 1 day PAIN SCALE: 0/10 LOCATION: cranial TECHNIQUE: Multiple contiguous axial images were obtained of the head. Using automated exposure control and adj ustment of the mA and/or kV according to patient size, radiation dose was kept as low as reasonably a chievable to obtain optimal diagnostic quality images. DICOM format image data is available electro nically for review and comparison. FINDINGS: CEREBRUM: The ventricles are normal for age. No evidence of midline shift, mass lesion, hemorrhage or acute in farction. No extra-axial fluid collections are seen. POSTERIOR FOSSA: The cerebellum and brainstem are intact. The 4th ventricle is midline. The cerebellopontine angle i s unremarkable. EXTRACRANIAL: The visualized portion of the orbits is intact. SKULL: The calvaria is intact. No evidence of skull fracture. CONCLUSION: Negative noncontrast head CT. Alvaro Pitt MD on April 09, 2017 at 19:16 Board Certified Radiologist. This report was verified electronically.
[2017-04-09 19:41] VITALS: BP 122/57; PULSE 59; RESP 18; TEMP 98.1; O2SAT 97
[2017-04-09] MEDS: DOCUSATE SODIUM 50 MG/SENNA 8.6 MG TAB PO SCH (21:00)
[2017-04-09] MEDS ORDERED: KETOROLAC TROMETHAMINE 30 MG/ML (IVP) VIAL IV PUSH ONE (21:15)
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
[2017-04-09] MEDS: SODIUM CHLOR 0.9% 1000 ML INJ 1,000 ML IV SCH (21:44)
[2017-04-09] MEDS: SODIUM CHLORIDE 0.9% FLUSH 10 ML FLUSH IV FLUSH SCH (21:46)
[2017-04-10] MEDS ORDERED: MORPHINE SULFATE 15 MG TAB PO PRN (04:00)
[2017-04-10 04:56] VITALS: BP 115/60; PULSE 64; RESP 18; TEMP 98.3; O2SAT 97
[2017-04-10] MEDS: SODIUM CHLOR 0.9% 1000 ML INJ 1,000 ML IV SCH (06:30)
[2017-04-10 07:00] VITALS: BP 148/72; PULSE 45; PULSE 54; RESP 20; O2SAT 98
[2017-04-10 07:30] VITALS: BP_SYST 126; BP_SYST 133; BP_DIAS 68; BP_DIAS 71; RESP 20
[2017-04-10 07:58] LABS: AUTOMATED NEUTROPHIL # 6.7 TH/MM3 (1.8-7.7); BASOPHIL # 0.1 TH/MM3 (0-0.2); BASOPHIL % 1.2 % (0.0-2.0); EOSINOPHIL # 0.1 TH/MM3 (0-0.4); EOSINOPHIL % 1.4 % (0.0-4.0); HEMATOCRIT 37.1 % (35.0-46.0); HEMO FLAGS DIFF FINAL; LYMPH % 15.2 % (9.0-44.0); LYMPHOCYTE # 1.4 TH/MM3 (1.0-4.8); MEAN CELL VOLUME 88.3 FL (80.0-100.0); MEAN CORPUSCULAR HEMOGLOBIN 29.1 PG (27.0-34.0); MONO % 8.1 % (0.0-8.0); NEUT % 74.1 % (16.0-70.0); PLATELET COUNT 294 TH/MM3 (150-450); RED CELL DISTRIBUTION WIDTH 18.4 % (11.6-17.2)
[2017-04-10 08:45] LABS: BICARBONATE 23.5 MEQ/L (21.0-32.0); POTASSIUM 3.8 MEQ/L (3.5-5.1)
[2017-04-10] MEDS: SODIUM CHLORIDE 0.9% FLUSH 10 ML FLUSH IV FLUSH SCH (08:57)
[2017-04-10] MEDS: DOCUSATE SODIUM 50 MG/SENNA 8.6 MG TAB PO SCH (08:59)
[2017-04-10 09:00] VITALS: BP 120/62; PULSE 57; RESP 16; O2SAT 99
[2017-04-10] MEDS ORDERED: LISINOPRIL 10 MG TAB PO SCH (09:00)
[2017-04-10] MEDS ORDERED: DULoxetine HCl DR 60 MG CAP PO SCH (09:00)
[2017-04-10] MEDS ORDERED: NITROFURANTOIN MONOHYD MACROCR 100 MG CAP PO SCH (09:00)
[2017-04-10 11:00] VITALS: BP 120/66; PULSE 56; RESP 14; O2SAT 95
--- NOTE | 2017-04-10 13:20 | EKG ---
Date Performed: 04/09/2017 Time Performed: 17:07:06 PTAGE: 66 years EKG: Ectopic atrial or junctional rhythm, which is new from the prior tracing. ABNORMAL RHYTHM E CG PREVIOUS TRACING : 03/29/2017 05.57 DOCTOR: Denis Rogers Interpretating Date/Time 04/10/2017 13:20:05
[2017-04-10] MEDS ORDERED: NITR100C4 PO (14:10)
--- NOTE | 2017-04-10 14:11 | HHI.PR ---
Subjective Remarks Follow up for UTI, generator fume related passing out. Patient is doing well, back to her baseline. No fever, chills. Objective Vitals Vital Signs Date Time Temp Pulse Resp B/P (MAP) Pulse Ox O2 Delivery O2 Flow Rate FiO2 04/10/17 12:01 04/10/17 11:00 56 14 120/66 (84) 95 Room Air 04/10/17 09:00 57 16 120/62 (81) 99 Room Air 04/10/17 07:30 48 20 133/71 (91) 60 20 126/68 (87) 04/10/17 07:00 54 20 148/72 (97) 98 Room Air 04/10/17 04:56 98.3 64 18 115/60 (78) 97 04/09/17 19:41 98.1 59 18 122/57 (78) 97 Room Air 04/09/17 16:00 18 Room Air 04/09/17 15:38 98.8 95 16 127/77 (94) 97 I/O 04/09/17 04/09/17 04/09/17 04/10/17 04/10/17 04/10/17 07:00 15:00 23:00 07:00 15:00 23:00 Intake Total 100 ml 200 ml Balance 100 ml 200 ml Intake Oral 200 ml IV Total 100 ml Result Diagram: 04/10/1773004/10/17730 Imaging Last Impressions Head CT 04/09/17 1722 Signed Impressions: Service Date/Time: March 18:37 - CONCLUSION: Negative noncontrast head CT. Alvaro Pitt MD Chest X-Ray 04/09/17 1549 Signed Impressions: Service Date/Time: March 15:59 - CONCLUSION: Normal examination. Leftward lumbar scoliosis Roel Collins MD Objective Remarks GENERAL: AOX3, NAD. SKIN: Warm and dry. HEAD: Normocephalic. EYES: scleral icterus present, not new. No injection or drainage. NECK: Supple, trachea midline. No JVD or lymphadenopathy. CARDIOVASCULAR: Regular rate and rhythm without murmurs, gallops, or rubs. RESPIRATORY: Breath sounds equal bilaterally. No accessory muscle use. GASTROINTESTINAL: Abdomen soft, non-tender, nondistended. MUSCULOSKELETAL: No cyanosis, or edema. BACK: Nontender without obvious deformity. No CVA tenderness. Procedures None. A/P Problem List: (1) Syncope ICD Code: R55 - Syncope and collapse Status: Acute (2) Transaminitis ICD Code: R74.0 - Nonspecific elevation of levels of transaminase and lactic acid dehydrogenase [LDH] (3) UTI (urinary tract infection) ICD Code: N39.0 - Urinary tract infection, site not specified Status: Acute Assessment and Plan 66 y/o female with a history of HTN, COPD, depression, anxiety, Hepatitis B and Chronic pain presented to the ED with complaints of dizziness and passing out at home. Syncope, suspected due to inhalation of fumes from generator Head CT reviewed and unremarkable - Back to baseline. Patient does not have any complaints. UTI, abnormal UA with large leukocyte esterase -nitrofurantoin PO Q12hr x 5 days. Transaminitis, AST 64, ALT 64, chronic -Patient has hep b and will follow outpatient with GI HTN, chronic: Resume home medications, monitor vitals DVT prophylaxis: SCDs Discharge patient to home Condition on discharge: Improved Regular Diet as tolerated Ad Leonila activity Rx written: Macrobid 100mg BID X 5 days. Follow-up with primary care physician within one week and GI follow up as scheduled previously. Problem Qualifiers (1) Syncope: Qualified Codes: R55 - Syncope and collapse France Murray DO Apr 10, 2017 14:11
[2017-04-10] MEDS ORDERED: traZODone HCL 100 MG TAB PO SCH (21:00)
[2017-04-10] MEDS ORDERED: DULoxetine HCl DR 30 MG CAP PO SCH (21:00)
== END 2017-04-10 17:39 | disposition home or self-care (01) ==
LOC: NEPE 15:26 → NEDA 18:58 → NEDH 04-10 03:49 → NEPFCDU 04-10 12:12
PROVIDERS: ADMIT Hospitalist; ATTEND Hospitalist
DX: N39.0 Urinary tract infection, site not specified (principal); B96.20 Unspecified Escherichia coli [E. coli] as the cause of diseases classified elsewhere; I10 Essential (primary) hypertension; R42 Dizziness and giddiness; R11.0 Nausea; Z72.0 Tobacco use; K72.90 Hepatic failure, unspecified without coma; B19.10 Unspecified viral hepatitis B without hepatic coma; R51 Headache; G89.29 Other chronic pain; J44.9 Chronic obstructive pulmonary disease, unspecified; R74.0 Nonspecific elevation of levels of transaminase and lactic acid dehydrogenase [LDH]
CPT/HCPCS: 36600; 70450; 71010; 80048; 80053; 81001; 82550; 82552; 82805; 83605; 84484; 85025; 85610; 85730; 87040; 87077; 87086; 87186; 93005; 96361; 96365; 97161; 99285; G0378; J2543; J7030

== ENCOUNTER 2017-04-13 10:34 | Emergency (ER) | payer OTHER ==
[~2017-04-13] VITALS: Ht 165.1 cm; Wt 61.0 kg
[~2017-04-13 10:34] MED LIST changes: +LISI10TA3 PO; +NITR100C4 PO
[2017-04-13 10:37] VITALS: BP 174/80; PULSE 80; RESP 20; TEMP 98.1; O2SAT 94
--- NOTE | 2017-04-13 11:29 | RADRPT ---
EXAM DATE/TIME: 04/13/2017 11:22 [facility] COMPARISON: No previous studies available for comparison. INDICATIONS : Fell yesterday, pain with bruising and swelling entire wrist. MEDICAL HISTORY : None. SURGICAL HISTORY : None. ENCOUNTER: Initial ACUITY: 2 days PAIN SCORE: 10/10 LOCATION: Left wrist. FINDINGS: There are degenerative changes at the first carpometacarpal joint. Alignment anatomic. Fracture is not appreciated. CONCLUSION: Degenerative changes without fracture. Romel Costello MD FACR on April 13, 2017 at 11:26 Board Certified Radiologist. This report was verified electronically.
--- NOTE | 2017-04-13 12:08 | PD ---
HPI Chief Complaint: Musculoskeletal Complaint Time Seen by Provider: 11:27 Travel History International Travel<30 days: No Contact w/Intl Traveler<30days: No Traveled to known affect area: No History of Present Illness HPI 66-year-old female presents to emergency Department with complaint of left wrist pain after tripping over a curb and falling last night. Denies hitting head or loss of consciousness. Denies neck pain or back pain. Denies chest pain, shortness of breath, abdominal pain, nausea, vomiting. Denies paresthesias, loss of sensation to the affected extremities. Reports decreased range of motion of the wrist. Took prescribed morphine prior to arrival for symptom management. Symptoms are mild in severity. Has no other medical complaints. No other modifying factors or associated signs and symptoms. PFSH Past Medical History Autoimmune Disease: No Blood Disorders: No Anxiety: Yes Depression: Yes Heart Rhythm Problems: No Cancer: No Cardiovascular Problems: Yes (HTN) High Cholesterol: No Chemotherapy: No Chest Pain: No Congestive Heart Failure: No COPD: Yes Cerebrovascular Accident: No Diminished Hearing: No Endocrine: No Gastrointestinal Disorders: No GERD: No Genitourinary: No Headaches: Yes Hepatitis: No Hypertension: Yes Immune Disorder: No Kidney Stones: No Musculoskeletal: No Neurologic: No Psychiatric: No Reproductive: No Respiratory: Yes Migraines: No Myocardial Infarction: No Radiation Therapy: No Renal Failure: No Seizures: No Sickle Cell Disease: No Sleep Apnea: No Ulcer: No Menopausal: Yes Past Surgical History Abdominal Surgery: Yes AICD: No Appendectomy: No Arteriovenous Shunt: No Body Medical Devices: Emir Cardiac Surgery: No Section: Yes Cholecystectomy: No Ear Surgery: No Endocrine Surgery: No Eye Surgery: No Genitourinary Surgery: No Gynecologic Surgery: Yes (D&C,) Insulin Pump: No Joint Replacement: No Neurologic Surgery: No Oral Surgery: No Pacemaker: No Thoracic Surgery: No Tonsillectomy: Yes Other Surgery: Yes (bunionectomy) Social History Alcohol Use: No Tobacco Use: Yes Substance Use: Yes (marijuanna ) Allergies-Medications (Allergen,Severity, Reaction): Coded Allergies: Iodinated Contrast- Oral and IV Dye (Unverified Allergy, Unknown, "LEGS TURN IN", 04/13/17) codeine (Unverified Adverse Reaction, Severe, NAUSEA & VOMITTING, 04/13/17) Reported Meds & Prescriptions Reported Meds & Active Scripts Active Nitrofurantoin Monohydrate Macrocrystals (Nitrofurantoin Monoh/Nitrofur Macro) 100 Mg Cap 100 Mg PO BIDPC Morphine IR (Morphine Sulfate) 15 Mg Tab 15 Mg PO Q8HR PRN Reported Lisinopril 10 Mg Tab 10 Mg PO DAILY Duloxetine DR (Duloxetine HCl) 60 Mg Capdr 60 Mg PO DAILY Trazodone (Trazodone HCl) 100 Mg Tablet 200 Mg PO HS Duloxetine DR (Duloxetine HCl) 30 Mg Capdr 30 Mg PO HS Review of Systems Except as stated in HPI: all other systems reviewed are Neg Physical Exam Narrative GENERAL: Well-nourished, well-developed female patient, in no acute distress SKIN: Warm and dry. HEAD: Atraumatic. Normocephalic. EYES: Pupils equal and round. No scleral icterus. No injection or drainage. ENT: Mucosa pink and moist. Airway patent. NECK: Trachea midline. CARDIOVASCULAR: Regular rate. RESPIRATORY: No accessory muscle use. GASTROINTESTINAL: Flat. MUSCULOSKELETAL: Left wrist with tenderness on palpation; no erythema ; mild edema; decreased range of motion. Left hand with full range of motion at all finger joints. Left upper extremity is supple and non-tense with 3+ radial pulse and sensory intact. No obvious deformities. No clubbing. No cyanosis. NEUROLOGICAL: Awake and alert. Oriented 3. No obvious cranial nerve deficits. Motor grossly within normal limits. Normal speech. PSYCHIATRIC: Appropriate mood and affect; insight and judgment normal. Data Data Last Documented VS Vital Signs Date Time Temp Pulse Resp B/P (MAP) Pulse Ox O2 Delivery O2 Flow Rate FiO2 04/13/17 10:37 98.1 80 20 174/80 (111) 94 Room Air Orders Orders Wrist, Complete ([id number]) (04/13/17 11:08) Splint Or Brace Apply/Monitor (04/13/17 11:36) [facility] Medical Decision Making Medical Screen Exam Complete: Yes Emergency Medical Condition: Yes Medical Record Reviewed: Yes Differential Diagnosis Wrist fracture, wrist sprain, wrist injury Narrative Course 66-year-old female with left wrist injury after mechanical fall. Denies hitting her head or loss of consciousness. Denies neck pain or back pain. Patient took morphine prior to arrival. Left wrist x-ray ordered. 1142: Left wrist x-ray concludes: Last 24 hours Impressions Wrist X-Ray 04/13/17 1108 Signed Impressions: Service Date/Time: Thursday, April 13, 2017 11:22 - CONCLUSION: Degenerative changes without fracture. Romel Costello MD FACR Splint provided for support. Patient has morphine prescription at home. Instructed patient to follow up with primary care provider. Patient verbalizes understanding and agreement with treatment plan. Patient is medically cleared and stable for discharge. Discussed reasons to return to the emergency department. Patient agrees with treatment plan. The patients vital signs are stable and the patient is stable for outpatient follow-up and treatment. Patient discharged home, stable and in no acute distress. Diagnosis Primary Impression: Left wrist injury Qualified Codes: S69.92XA - Unspecified injury of left wrist, hand and finger( s), initial encounter Referrals: Primary Care Physician Patient Instructions: General Instructions, Wrist Sprain (ED) Additional Instructions: Tylenol or ibuprofen as directed and as needed to reduce pain Rest, ice, compress, and elevate extremity to decrease pain and inflammation Marin wrap for support Splint for support Avoid aggravating activity; increase activity as tolerated Follow-up with primary care provider Return to the emergency department immediately with worsening symptoms Med/Other Pt SpecificInfo: No Change to Meds, No Meds Exist/No RX given Disposition: 01 DISCHARGE HOME Condition: Stable Saundra Amador Apr 13, 2017 11:27
== END 2017-04-13 12:20 | disposition home or self-care (01) ==
LOC: NEPK 10:34
DX: S69.92XA Unspecified injury of left wrist, hand and finger(s), initial encounter (principal); W18.09XA Striking against other object with subsequent fall, initial encounter
CPT/HCPCS: 73110; 99283; L3908

== ENCOUNTER 2017-05-07 13:34 | Emergency (ER) | payer OTHER ==
[~2017-05-07] VITALS: Ht 165.1 cm; Wt 56.0 kg
[2017-05-07 13:37] VITALS: BP 143/60; PULSE 97; RESP 22; TEMP 97.8; O2SAT 96
--- NOTE | 2017-05-07 13:39 | PD ---
Physical Exam Time Seen by Provider: 13:37 Narrative 66-year-old female with history of liver failure presents to the emergency department requesting a refill on morphine for her abdominal pain. Says her primary care provider would only prescribe her Lortab and she says she can't take Lortab. She has had right upper quadrant abdominal pain that exacerbated for 3 days. Reports nausea without vomiting. Denies fevers. Patient seen in triage. Vital signs reviewed. Patient awaiting medical bed. [facility] Supervised Visit with KATERIN: Saundra Mccann May 07, 2017 13:39
[2017-05-07] MEDS ORDERED: SODIUM CHLORIDE 0.9% FLUSH 10 ML FLUSH IV FLUSH PRN (14:30)
[2017-05-07 15:13] LABS: BACTERIA, URINE OCC /hpf; BLOOD, URINE NEG (NEG); COMMENT (UR) CULTURE INDICATED; CULTURE IF INDICATED CULTURE INDICATED; GLUCOSE,URINE NEG (NEG); HYALINE CAST, URINE 1 /lpf (RARE); KETONE, URINE NEG (NEG); MUCUS URINE FEW /lpf (OCC); NITRITE,URINE NEG (NEG); SQUAMOUS EPITHELIAL CELL URINE 20 /hpf (0-5); URINE COLOR YELLOW (YELLW/STRAW)
[2017-05-07 15:17] LABS: AUTOMATED NEUTROPHIL # 4.8 TH/MM3 (1.8-7.7); BASOPHIL # 0.1 TH/MM3 (0-0.2); BASOPHIL % 0.8 % (0.0-2.0); EOSINOPHIL # 0.2 TH/MM3 (0-0.4); EOSINOPHIL % 2.3 % (0.0-4.0); HEMATOCRIT 48.8 % (35.0-46.0); HEMO FLAGS DIFF FINAL; LYMPH % 25.3 % (9.0-44.0); LYMPHOCYTE # 1.8 TH/MM3 (1.0-4.8); MEAN CELL VOLUME 87.4 FL (80.0-100.0); MEAN CORPUSCULAR HEMOGLOBIN 28.5 PG (27.0-34.0); MEAN CORPUSCULAR HGB CONC 32.5 % (32.0-36.0); MONO % 6.1 % (0.0-8.0); NEUT % 65.5 % (16.0-70.0); PLATELET COUNT 231 TH/MM3 (150-450); RED BLOOD COUNT 5.59 MIL/MM3 (4.00-5.30); RED CELL DISTRIBUTION WIDTH 15.4 % (11.6-17.2); WHITE BLOOD COUNT 7.3 TH/MM3 (4.0-11.0)
[2017-05-07 15:33] LABS: ALT (GPT) 20 U/L (10-53); ANION GAP 6 MEQ/L (5-15); AST (GOT) 29 U/L (15-37); BICARBONATE 22.7 MEQ/L (21.0-32.0); BLOOD UREA NITROGEN 5 MG/DL (7-18); CHLORIDE 108 MEQ/L (98-107); GLOMERULAR FILTRATION RATE 66 ML/MIN (>89); POTASSIUM 3.9 MEQ/L (3.5-5.1); SODIUM (NA) 137 MEQ/L (136-145)
[2017-05-07 15:36] LABS: ALKALINE PHOSPHATASE 107 U/L (45-117); TOTAL BILIRUBIN ADULT 0.9 MG/DL (0.2-1.0)
[2017-05-07] MEDS ORDERED: CYMB60CA PO (15:43)
[2017-05-07] MEDS ORDERED: CYMB30CA PO (15:43)
[2017-05-07] MEDS ORDERED: SODIUM CHLOR 0.9% 1000 ML INJ 1,000 ML IV ONE (16:00)
[2017-05-07] MEDS ORDERED: MORPHINE SULFATE 4 MG/ML INJ IV PUSH ONE (16:00)
[2017-05-07] MEDS ORDERED: ONDANSETRON HCL 4 MG/2 ML VIAL IV PUSH ONE (16:00)
[2017-05-07 16:05] LABS: APTT (PATIENT) 30.2 SEC (24.3-30.1); PROTHROMBIN TIME - PATIENT 10.5 SEC (9.8-11.6)
[2017-05-07 16:58] VITALS: BP 131/62; PULSE 73; RESP 20; O2SAT 96
--- NOTE | 2017-05-07 16:59 | PD ---
HPI Chief Complaint: Abdominal Pain Time Seen by Provider: 15:42 Travel History International Travel<30 days: No Contact w/Intl Traveler<30days: No Traveled to known affect area: No History of Present Illness HPI Patient is a 66 year old female who comes in complaining of abdominal pain. She was here and admitted for elevated liver enzymes about a month ago. She says she was found to have hepatitis B. She was discharged with a prescription for morphine, which she has run out of. She says she went to see her pain management doctor who prescribed Lortab for her, and she became angry because she was told not to take Tylenol anymore. She says that the pain started a few days ago and has been getting worse. She's had some nausea, but no vomiting. She denies fever or chills. PFSH Past Medical History Autoimmune Disease: No Blood Disorders: No Anxiety: Yes Depression: Yes Heart Rhythm Problems: No Cancer: No Cardiovascular Problems: Yes (HTN) High Cholesterol: No Chemotherapy: No Chest Pain: No Congestive Heart Failure: No COPD: Yes Cerebrovascular Accident: No Diminished Hearing: No Endocrine: No Gastrointestinal Disorders: No GERD: No Genitourinary: No Headaches: Yes Hepatitis: Yes (B) Hypertension: Yes Immune Disorder: No Implanted Vascular Access Dvce: Yes Kidney Stones: No Musculoskeletal: No Neurologic: No Psychiatric: No Reproductive: No Respiratory: Yes Migraines: No Myocardial Infarction: No Radiation Therapy: No Renal Failure: No Seizures: No Sickle Cell Disease: No Sleep Apnea: No Ulcer: No ?: Not Menopausal: Yes Past Surgical History Abdominal Surgery: Yes AICD: No Appendectomy: No Arteriovenous Shunt: No Body Medical Devices: Emir Cardiac Surgery: No Section: Yes Cholecystectomy: No Ear Surgery: No Endocrine Surgery: No Eye Surgery: No Genitourinary Surgery: No Gynecologic Surgery: Yes (D&C,) Insulin Pump: No Joint Replacement: No Neurologic Surgery: No Oral Surgery: No Pacemaker: No Thoracic Surgery: No Tonsillectomy: Yes Other Surgery: Yes (bunionectomy, neck, spine, I&D on breast, ceasarian) Social History Alcohol Use: No Tobacco Use: Yes Substance Use: Yes (marijuanna ) Allergies-Medications (Allergen,Severity, Reaction): Coded Allergies: Iodinated Contrast- Oral and IV Dye (Unverified Allergy, Unknown, "LEGS TURN IN", 05/07/17) codeine (Unverified Adverse Reaction, Severe, NAUSEA & VOMITTING, 05/07/17 ) Reported Meds & Prescriptions Reported Meds & Active Scripts Active Morphine IR (Morphine Sulfate) 15 Mg Tab 15 Mg PO Q8HR PRN Reported Cymbalta DR (Duloxetine HCl) 60 Mg Capdr 60 Mg PO DAILY Cymbalta DR (Duloxetine HCl) 30 Mg Capdr 30 Mg PO HS Lisinopril 10 Mg Tab 10 Mg PO DAILY Trazodone (Trazodone HCl) 100 Mg Tablet 200 Mg PO HS Review of Systems Except as stated in HPI: all other systems reviewed are Neg General / Constitutional: No: Fever, Chills HENT: No: Headaches, Lightheadedness Cardiovascular: No: Chest Pain or Discomfort Respiratory: No: Shortness of Breath Gastrointestinal: Positive: Nausea, Abdominal Pain Genitourinary: No: Dysuria Musculoskeletal: No: Myalgias, Edema Skin: No Rash, No Change in Pigmentation Neurologic: No: Weakness, Dizziness Physical Exam Narrative GENERAL: Awake and alert, in no acute distress. SKIN: Focused skin assessment warm/dry. HEAD: Atraumatic. Normocephalic. EYES: Pupils equal and round. No scleral icterus. ENT: Mucous membranes pink and moist. NECK: Trachea midline. No JVD. CARDIOVASCULAR: Regular rate and rhythm. No murmur appreciated. RESPIRATORY: No accessory muscle use. Clear to auscultation. Breath sounds equal bilaterally. GASTROINTESTINAL: Abdomen soft, nondistended. Tender to palpation of the epigastric area, no rebound or guarding. MUSCULOSKELETAL: No obvious deformities. No clubbing. No cyanosis. No edema. NEUROLOGICAL: Awake and alert. No obvious cranial nerve deficits. Motor grossly within normal limits. Normal speech. PSYCHIATRIC: Appropriate mood and affect; insight and judgment normal. Data Data Last Documented VS Vital Signs Date Time Temp Pulse Resp B/P (MAP) Pulse Ox O2 Delivery O2 Flow Rate FiO2 05/07/17 16:58 73 20 131/62 (85) 96 05/07/17 13:37 97.8 Orders Orders Complete Blood Count With Diff (05/07/17 14:22) Comprehensive Metabolic Panel (05/07/17 14:22) Lipase (05/07/17 14:22) Prothrombin Time / Inr (Pt) (05/07/17 14:22) Act Partial Throm Time (Ptt) (05/07/17 14:22) Urinalysis - C+S If Indicated (05/07/17 14:22) Iv Access Insert/Monitor (05/07/17 14:22) Ecg Monitoring (05/07/17 14:22) Oximetry (05/07/17 14:22) Sodium Chloride 0.9% Flush (Ns Flush) (05/07/17 14:30) Urine Culture (05/07/17 14:45) Sodium Chlor 0.9% 1000 Ml Inj (Ns 1000 M (05/07/17 16:00) Morphine Inj (Morphine Inj) (05/07/17 16:00) Ondansetron Inj (Zofran Inj) (05/07/17 16:00) Ct Abd/Pel W/O Iv Contrast (05/07/17 ) Labs Laboratory Tests Test 05/07/17 14:45 White Blood Count 7.3 TH/MM3 Red Blood Count 5.59 MIL/MM3 Hemoglobin 15.9 GM/DL Hematocrit 48.8 % Mean Corpuscular Volume 87.4 FL Mean Corpuscular Hemoglobin 28.5 PG Mean Corpuscular Hemoglobin Concent 32.5 % Red Cell Distribution Width 15.4 % Platelet Count 231 TH/MM3 Mean Platelet Volume 9.0 FL Neutrophils (%) (Auto) 65.5 % Lymphocytes (%) (Auto) 25.3 % Monocytes (%) (Auto) 6.1 % Eosinophils (%) (Auto) 2.3 % Basophils (%) (Auto) 0.8 % Neutrophils # (Auto) 4.8 TH/MM3 Lymphocytes # (Auto) 1.8 TH/MM3 Monocytes # (Auto) 0.4 TH/MM3 Eosinophils # (Auto) 0.2 TH/MM3 Basophils # (Auto) 0.1 TH/MM3 CBC Comment DIFF FINAL Differential Comment Prothrombin Time 10.5 SEC Prothromb Time International Ratio 1.0 RATIO Activated Partial Thromboplast Time 30.2 SEC Urine Color YELLOW Urine Turbidity HAZY Urine pH 6.0 Urine Specific [place] 1.013 Urine Protein TRACE mg/dL Urine Glucose (UA) NEG mg/dL Urine Ketones NEG mg/dL Urine Occult Blood NEG Urine Nitrite NEG Urine Bilirubin NEG Urine Urobilinogen LESS THAN 2.0 MG/DL Urine Leukocyte Esterase MOD Urine RBC 2 /hpf Urine WBC 21 /hpf Urine Squamous Epithelial Cells 20 /hpf Urine Bacteria OCC /hpf Urine Hyaline Casts 1 /lpf Urine Mucus FEW /lpf Microscopic Urinalysis Comment CULTURE INDICATED Blood Urea Nitrogen 5 MG/DL Creatinine 0.86 MG/DL Random Glucose 88 MG/DL Total Protein 8.1 GM/DL Albumin 3.2 GM/DL Calcium Level 9.0 MG/DL Alkaline Phosphatase 107 U/L Aspartate Amino Transf (AST/SGOT) 29 U/L Alanine Aminotransferase (ALT/SGPT) 20 U/L Total Bilirubin 0.9 MG/DL Sodium Level 137 MEQ/L Potassium Level 3.9 MEQ/L Chloride Level 108 MEQ/L Carbon Dioxide Level 22.7 MEQ/L Anion Gap 6 MEQ/L Estimat Glomerular Filtration Rate 66 ML/MIN Lipase 430 U/L [facility] Medical Decision Making Medical Screen Exam Complete: Yes Emergency Medical Condition: Yes Medical Record Reviewed: Yes Differential Diagnosis Pancreatitis vs gastritis vs encounter for pain medication Narrative Course Patient is a 66-year-old female comes in complaining of abdominal pain. Exam shows tenderness to the epigastric area. She is currently not taking pain medication at home. IV established, labs sent. Labs show a lipase of 430, liver function tests are within normal limits. Given IV fluids, Zofran, morphine. CT abdomen and pelvis performed. Patient signed out to Dr. Ashraf to follow-up CAT scan and disposition the patient. Condition: Stable Jaja Arcos MD May 07, 2017 16:58
--- NOTE | 2017-05-07 17:39 | RADRPT ---
EXAM DATE/TIME: 05/07/2017 17:15 [facility] COMPARISON: MRCP W/O CONTRAST, March 27, 2017, 12:28. INDICATIONS : Right upper quadrant painfor three days,nausea ORAL CONTRAST: No oral contrast ingested. RADIATION DOSE: 4.73 CTDIvol (mGy) MEDICAL HISTORY : Hypertension. Chronic obstructive pulmonary disease. Hepatitis C. SURGICAL HISTORY : section. Neck surgery ENCOUNTER: Initial ACUITY: 3 days PAIN SCALE: 10/10 LOCATION: Abdomen TECHNIQUE: Volumetric scanning of the abdomen and pelvis was performed. Using automated exposure control and ad justment of the mA and/or kV according to patient size, radiation dose was kept as low as reasonably achievable to obtain optimal diagnostic quality images. DICOM format image data is available electro nically for review and comparison. FINDINGS: There is subsegmental atelectasis in the left base. There is benign appearing thickening of the right hemidiaphragm. The liver and spleen are normal in size and no focal defects are identified. There is a single stone within the gallbladder without wall thickening or pericholecystic fluid measuring 2 m m. The common duct is dilated to 14 mm which is increased in size from the prior study where it measu red 9 mm. The pancreas demonstrates no evidence of mass and there is no dilatation of the pancreatic duct. The adrenal glands and kidneys appear normal bilaterally. No hydronephrosis or mass lesions are identified. Examination of the pelvis demonstrates no evidence of free fluid or pelvic mass. No abnormally enlarg ed inguinal or retroperitoneal lymph nodes are present. The bladder is unremarkable. There is diverti culosis without evidence of diverticulitis. CONCLUSION: 1. No evidence of acute abdominal or pelvic process. No masses are identified. 2. Cholelithiasis without common duct stone though the duct has increased in size and compared to the prior study. MRCP could be performed for further evaluation if clinically indicated. 3. Diverticulosis without evidence of diverticulitis. Ricky Morales MD on May 07, 2017 at 17:28 Board Certified Radiologist. This report was verified electronically.
[2017-05-07] MEDS ORDERED: ULTR50TA5 PO (17:50)
[2017-05-07] MEDS ORDERED: DICY10 PO (17:50)
--- NOTE | 2017-05-07 17:51 | PD ---
Physical Exam Narrative GENERAL: SKIN: Warm and dry. HEAD: Atraumatic. Normocephalic. EYES: Pupils equal and round. No scleral icterus. No injection or drainage. ENT: No nasal bleeding or discharge. Mucous membranes pink and moist. NECK: Trachea midline. No JVD. CARDIOVASCULAR: Regular rate and rhythm. RESPIRATORY: No accessory muscle use. Clear to auscultation. Breath sounds equal bilaterally. GASTROINTESTINAL: Abdomen soft, non-tender, nondistended. no rebound/guarding/ rigidity MUSCULOSKELETAL: Extremities without clubbing, cyanosis, or edema. No obvious deformities. NEUROLOGICAL: Awake and alert. No obvious cranial nerve deficits. Motor grossly within normal limits. Five out of 5 muscle strength in the arms and legs. Normal speech. PSYCHIATRIC: Appropriate mood and affect; insight and judgment normal. Data Data Last Documented VS Vital Signs Date Time Temp Pulse Resp B/P (MAP) Pulse Ox O2 Delivery O2 Flow Rate FiO2 05/07/17 16:58 73 20 131/62 (85) 96 05/07/17 13:37 97.8 Orders Orders Complete Blood Count With Diff (05/07/17 14:22) Comprehensive Metabolic Panel (05/07/17 14:22) Lipase (05/07/17 14:22) Prothrombin Time / Inr (Pt) (05/07/17 14:22) Act Partial Throm Time (Ptt) (05/07/17 14:22) Urinalysis - C+S If Indicated (05/07/17 14:22) Iv Access Insert/Monitor (05/07/17 14:22) Ecg Monitoring (05/07/17 14:22) Oximetry (05/07/17 14:22) Sodium Chloride 0.9% Flush (Ns Flush) (05/07/17 14:30) Urine Culture (05/07/17 14:45) Sodium Chlor 0.9% 1000 Ml Inj (Ns 1000 M (05/07/17 16:00) Morphine Inj (Morphine Inj) (05/07/17 16:00) Ondansetron Inj (Zofran Inj) (05/07/17 16:00) Ct Abd/Pel W/O Iv Contrast (05/07/17 ) Labs Laboratory Tests Test 05/07/17 14:45 White Blood Count 7.3 TH/MM3 Red Blood Count 5.59 MIL/MM3 Hemoglobin 15.9 GM/DL Hematocrit 48.8 % Mean Corpuscular Volume 87.4 FL Mean Corpuscular Hemoglobin 28.5 PG Mean Corpuscular Hemoglobin Concent 32.5 % Red Cell Distribution Width 15.4 % Platelet Count 231 TH/MM3 Mean Platelet Volume 9.0 FL Neutrophils (%) (Auto) 65.5 % Lymphocytes (%) (Auto) 25.3 % Monocytes (%) (Auto) 6.1 % Eosinophils (%) (Auto) 2.3 % Basophils (%) (Auto) 0.8 % Neutrophils # (Auto) 4.8 TH/MM3 Lymphocytes # (Auto) 1.8 TH/MM3 Monocytes # (Auto) 0.4 TH/MM3 Eosinophils # (Auto) 0.2 TH/MM3 Basophils # (Auto) 0.1 TH/MM3 CBC Comment DIFF FINAL Differential Comment Prothrombin Time 10.5 SEC Prothromb Time International Ratio 1.0 RATIO Activated Partial Thromboplast Time 30.2 SEC Urine Color YELLOW Urine Turbidity HAZY Urine pH 6.0 Urine Specific [place] 1.013 Urine Protein TRACE mg/dL Urine Glucose (UA) NEG mg/dL Urine Ketones NEG mg/dL Urine Occult Blood NEG Urine Nitrite NEG Urine Bilirubin NEG Urine Urobilinogen LESS THAN 2.0 MG/DL Urine Leukocyte Esterase MOD Urine RBC 2 /hpf Urine WBC 21 /hpf Urine Squamous Epithelial Cells 20 /hpf Urine Bacteria OCC /hpf Urine Hyaline Casts 1 /lpf Urine Mucus FEW /lpf Microscopic Urinalysis Comment CULTURE INDICATED Blood Urea Nitrogen 5 MG/DL Creatinine 0.86 MG/DL Random Glucose 88 MG/DL Total Protein 8.1 GM/DL Albumin 3.2 GM/DL Calcium Level 9.0 MG/DL Alkaline Phosphatase 107 U/L Aspartate Amino Transf (AST/SGOT) 29 U/L Alanine Aminotransferase (ALT/SGPT) 20 U/L Total Bilirubin 0.9 MG/DL Sodium Level 137 MEQ/L Potassium Level 3.9 MEQ/L Chloride Level 108 MEQ/L Carbon Dioxide Level 22.7 MEQ/L Anion Gap 6 MEQ/L Estimat Glomerular Filtration Rate 66 ML/MIN Lipase 430 U/L [facility] Medical Record Reviewed: Yes Supervised Visit with KATERIN: No Narrative Course patient tolerating po well, in no pain currently, will be d/c on bentyl and ultram with referral to general surgey Diagnosis Primary Impression: Cholelithiasis Qualified Codes: K80.20 - Calculus of gallbladder without cholecystitis without obstruction Referrals: Jatinder Gracia MD for outpatient care of your gallstone Patient Instructions: Gallstones (ED), General Instructions Scripts Tramadol (Ultram) 50 Mg Tab 50 MG PO Q6H Y for PAIN, #12 TAB 0 Refills Prov: Paras Ashraf MD 05/07/17 Dicyclomine (Bentyl) 10 Mg Cap 10 MG PO TID for Bowel Management, #15 CAP 0 Refills Prov: Paras Ashraf MD 05/07/17 Disposition: 01 DISCHARGE HOME Condition: Stable Paras Ashraf MD May 07, 2017 17:51
== END 2017-05-07 19:01 | disposition home or self-care (01) ==
LOC: NEPD 13:34
DX: K80.20 Calculus of gallbladder without cholecystitis without obstruction (principal); F41.9 Anxiety disorder, unspecified; F32.9 Major depressive disorder, single episode, unspecified; I10 Essential (primary) hypertension; J44.9 Chronic obstructive pulmonary disease, unspecified; F17.200 Nicotine dependence, unspecified, uncomplicated; B19.10 Unspecified viral hepatitis B without hepatic coma
CPT/HCPCS: 74176; 80053; 81001; 83690; 85025; 85610; 85730; 87077; 87086; 87186; 96361; 96374; 96375; 99285; J2270; J2405; J7030

== ENCOUNTER 2017-05-13 13:42 | Emergency (ER) | payer OTHER ==
[~2017-05-13] VITALS: Ht 165.1 cm; Wt 58.0 kg
[~2017-05-13 13:42] MED LIST changes: +CYMB30CA PO; +CYMB60CA PO; +DICY10 PO; -DULO1CAP2 PO; -DULO1CAP3 PO; -NITR100C4 PO; +ULTR50TA5 PO
[2017-05-13 13:43] VITALS: BP 148/87; PULSE 79; RESP 16; TEMP 97.6; O2SAT 97
--- NOTE | 2017-05-13 14:38 | PD ---
HPI Chief Complaint: Injury Time Seen by Provider: 14:32 Travel History International Travel<30 days: No Contact w/Intl Traveler<30days: No Traveled to known affect area: No History of Present Illness HPI 66-year-old female presents to the emergency Department with complaint of left wrist pain and swelling after reinjuring it 4 days ago when she got knocked over by a dog. She denies hitting her head or loss of consciousness. Denies neck pain or back pain. I evaluated this patient one month ago, on April 13 , for left wrist injury and an x-ray at that time verified that there was no fracture. She has a Velcro wrist splint in place. She denies paresthesias, loss of sensation to the affected extremity. Reports decreased range of motion at the wrist. Denies fever, vomiting. Has not taken any medications to alleviate her symptoms. She says she has liver failure and cannot take over-the -counter meds. Rates the pain 10/10. Describes pain as shooting and throbbing. Has no other medical complaints. Allergies to iodine and codeine. No other modifying factors or associated signs and symptoms. PFSH Past Medical History Autoimmune Disease: No Blood Disorders: No Anxiety: Yes Depression: Yes Heart Rhythm Problems: No Cancer: No Cardiovascular Problems: Yes (HTN) High Cholesterol: No Chemotherapy: No Chest Pain: No Congestive Heart Failure: No COPD: Yes Cerebrovascular Accident: No Diminished Hearing: No Endocrine: No Gastrointestinal Disorders: No GERD: No Genitourinary: No Headaches: Yes Hepatitis: Yes (B) Hypertension: Yes Immune Disorder: No Implanted Vascular Access Dvce: Yes Kidney Stones: No Musculoskeletal: No Neurologic: No Psychiatric: No Reproductive: No Respiratory: Yes (COPD) Migraines: No Myocardial Infarction: No Radiation Therapy: No Renal Failure: No Seizures: No Sickle Cell Disease: No Sleep Apnea: No Ulcer: No ?: Not Menopausal: Yes Past Surgical History Abdominal Surgery: Yes AICD: No Appendectomy: No Arteriovenous Shunt: No Body Medical Devices: Emir Cardiac Surgery: No Section: Yes Cholecystectomy: No Ear Surgery: No Endocrine Surgery: No Eye Surgery: No Genitourinary Surgery: No Gynecologic Surgery: Yes (D&C,) Insulin Pump: No Joint Replacement: No Neurologic Surgery: No Oral Surgery: No Pacemaker: No Thoracic Surgery: No Tonsillectomy: Yes Other Surgery: Yes (bunionectomy, neck, spine, I&D on breast, ceasarian) Social History Alcohol Use: No Tobacco Use: Yes Substance Use: Yes (le ) Allergies-Medications (Allergen,Severity, Reaction): Coded Allergies: Iodinated Contrast- Oral and IV Dye (Unverified Allergy, Unknown, "LEGS TURN IN", 05/07/17) codeine (Unverified Adverse Reaction, Severe, NAUSEA & VOMITTING, 05/07/17 ) Reported Meds & Prescriptions Reported Meds & Active Scripts Active Ultram (Tramadol HCl) 50 Mg Tab 50 Mg PO Q6H PRN Bentyl (Dicyclomine HCl) 10 Mg Cap 10 Mg PO TID Morphine IR (Morphine Sulfate) 15 Mg Tab 15 Mg PO Q8HR PRN Reported Cymbalta DR (Duloxetine HCl) 60 Mg Capdr 60 Mg PO DAILY Cymbalta DR (Duloxetine HCl) 30 Mg Capdr 30 Mg PO HS Lisinopril 10 Mg Tab 10 Mg PO DAILY Trazodone (Trazodone HCl) 100 Mg Tablet 200 Mg PO HS Review of Systems Except as stated in HPI: all other systems reviewed are Neg Physical Exam Narrative GENERAL: Well-nourished, well-developed female patient, in no acute distress SKIN: Warm and dry. HEAD: Atraumatic. Normocephalic. EYES: Pupils equal and round. No scleral icterus. No injection or drainage. ENT: Mucosa pink and moist. Airway patent. NECK: Trachea midline. CARDIOVASCULAR: Regular rate. RESPIRATORY: No accessory muscle use. GASTROINTESTINAL: Flat. MUSCULOSKELETAL: Left wrist with tenderness on palpation; with edema; without erythema or ecchymosis; unable to assess range of motion secondary to patient guarding; no obvious deformity. Left upper extremity supple and nontender to 2 + radial pulses and sensory intact without erythema or edema. All fingers with full range of motion, less than 3 second cap refill, and sensory intact. No obvious deformities. No clubbing. No cyanosis. NEUROLOGICAL: Awake and alert. Oriented 3. No obvious cranial nerve deficits. Motor grossly within normal limits. Normal speech. PSYCHIATRIC: Appropriate mood and affect; insight and judgment normal. Data Data Last Documented VS Vital Signs Date Time Temp Pulse Resp B/P (MAP) Pulse Ox O2 Delivery O2 Flow Rate FiO2 05/13/17 13:43 97.6 79 16 148/87 (107) 97 Room Air Orders Orders Wrist, Complete ([id number]) (05/13/17 14:05) Ed Discharge Order (05/13/17 15:15) [facility] Medical Decision Making Medical Screen Exam Complete: Yes Emergency Medical Condition: Yes Medical Record Reviewed: Yes Differential Diagnosis Wrist fracture, wrist sprain, wrist injury Narrative Course 66-year-old female with reinjury of her left wrist 4 days ago after mechanical fall. I evaluated this patient on April 13 for left wrist injury and x-ray verified no acute fracture. Left wrist x-ray ordered. 1514: Left wrist x-ray concludes: No fracture or dislocation. 2. Chronic scapholunate ligamentous injury. MRI would be needed to further evaluate. 3. Osteopenia and osteoarthritis. Patient provided with a copy of the x-ray report and told to follow up outpatient for MRI. Patient has Velcro wrist splint for support. Patient has follow-up appointment with Dr. Mclaughlin, her primary care provider, tomorrow. Instructed patient to follow up with orthopedics. Instructed patient to follow up with primary care provider. Patient verbalizes understanding and agreement with treatment plan. Patient is medically cleared and stable for discharge. Discussed reasons to return to the emergency department. Patient agrees with treatment plan. The patients vital signs are stable and the patient is stable for outpatient follow-up and treatment. Patient discharged home, stable and in no acute distress. Diagnosis Primary Impression: Left wrist injury Qualified Codes: S69.92XA - Unspecified injury of left wrist, hand and finger( s), initial encounter Referrals: Hand Surgeon Primary Care Physician Patient Instructions: General Instructions Additional Instructions: Tylenol or ibuprofen as directed and as needed to reduce pain Rest, ice, compress, and elevate extremity to decrease pain and inflammation Marin wrap for support Wrist Splint for support Avoid aggravating activity; increase activity as tolerated Follow-up with primary care provider Return to the emergency department immediately with worsening symptoms Med/Other Pt SpecificInfo: No Meds Exist/No RX given Disposition: 01 DISCHARGE HOME Condition: Stable Saundra Amador May 13, 2017 14:38
--- NOTE | 2017-05-13 15:04 | RADRPT ---
EXAM DATE/TIME: 05/13/2017 14:19 [facility] COMPARISON: WRIST LEFT COMPLETE ([id number]), April 13, 2017, 11:22. INDICATIONS : Left wrist pain after falling from a dog jumping on her. MEDICAL HISTORY : Hypertension. Chronic obstructive pulmonary disease. Hepatitis C. SURGICAL HISTORY : section. Neck surgery ENCOUNTER: Initial ACUITY: 4 - 6 days PAIN SCORE: 10/10 LOCATION: Left wrist FINDINGS: 3 views of left wrist show diffuse osteopenia. Chronic widening of the scapholunate distance. This is unchanged. Osteoarthritis involving the base of the thumb. No acute fracture or dislocation. No appr eciable soft tissue swelling. CONCLUSION: 1. No fracture or dislocation. 2. Chronic scapholunate ligamentous injury. MRI would be needed to further evaluate. 3. Osteopenia and osteoarthritis. Julien Nino Jr., MD on May 13, 2017 at 15:00 Board Certified Radiologist. This report was verified electronically.
== END 2017-05-13 15:40 | disposition home or self-care (01) ==
LOC: NEPK 13:42
DX: S69.92XA Unspecified injury of left wrist, hand and finger(s), initial encounter (principal); M85.88 Other specified disorders of bone density and structure, other site; M19.032 Primary osteoarthritis, left wrist; I10 Essential (primary) hypertension; W18.39XA Other fall on same level, initial encounter; W54.1XXA Struck by dog, initial encounter; Z72.0 Tobacco use; Z87.39 Personal history of other diseases of the musculoskeletal system and connective tissue; Z86.59 Personal history of other mental and behavioral disorders; Z86.79 Personal history of other diseases of the circulatory system; Z87.09 Personal history of other diseases of the respiratory system; Z86.19 Personal history of other infectious and parasitic diseases; Z87.19 Personal history of other diseases of the digestive system
CPT/HCPCS: 73110; 99283

== ENCOUNTER → 2017-09-28 | Outpatient (CLI) | payer MEDICARE ==
[~2017-09-28] MED LIST changes: +TRAM50 PO; +TRAZ100T10 PO; -TRAZ100T6 PO; -ULTR50TA5 PO
== END ==
LOC: HRSP 10:55
PROVIDERS: ATTEND Internal Medicine
DX: J44.9 Chronic obstructive pulmonary disease, unspecified (principal)
CPT/HCPCS: 94060; 94726; 94729

== ENCOUNTER 2017-11-06 19:31 | Emergency (ER) | payer MEDICARE, MEDICAID ==
[2017-11-06 20:36] VITALS: BP 150/84; PULSE 53; RESP 16; TEMP 97.8; O2SAT 97
[2017-11-06] MEDS ORDERED: MISCELLANEOUS PHARMACY INFORMATION XX ONE (22:15)
[2017-11-06] MEDS ORDERED: DALBAVANCIN INJ 1,500 MG in DEXTROSE 5% IN WATE 500 ML INJ 500 ML IV STA ×2 (22:15)
[2017-11-06] MEDS ORDERED: ASP: Only reason for admit - IV antibiotics OTHER ONE (22:15)
[2017-11-06] MEDS ORDERED: ASP: No known hypersensitivity to Vanco, Telavancin, Dalbavancin OTHER ONE (22:15)
[2017-11-06] MEDS ORDERED: ASP: Location of Dalbavancin administration OTHER ONE (22:15)
[2017-11-06] MEDS ORDERED: ASP: Does not meet inpatient admission criteria OTHER ONE (22:15)
--- NOTE | 2017-11-06 22:39 | PD ---
HPI Chief Complaint: Bite or Sting Time Seen by Provider: 22:13 Travel History International Travel<30 days: No Contact w/Intl Traveler<30days: No Traveled to known affect area: No History of Present Illness HPI Patient is a 67-year-old female presenting to the emergency room for evaluation of redness to her right forearm. Patient states she had a bug bite to her thumb that she noticed yesterday. Today she attempted to pick at it, over the course of the day today the redness has increased up her forearm just proximal to the antecubital space on her bicep. She denies any fever, chills, nausea, vomiting, headache. She reports her pain is a 5 out of 10, she states it sore. Patient has not taken any medication to alleviate the pain. She denies any IV drug use. Symptom onset was gradual, symptoms are moderate in nature. There are no alleviating factors. Pain is constant. PFSH Past Medical History Anxiety: Yes Depression: Yes Cardiovascular Problems: Yes (HTN) COPD: Yes Headaches: Yes Hepatitis: Yes (B) Hypertension: Yes Implanted Vascular Access Dvce: Yes Respiratory: Yes (COPD) ?: Not Menopausal: Yes Past Surgical History Abdominal Surgery: Yes AICD: No Appendectomy: No Arteriovenous Shunt: No Body Medical Devices: Emir Cardiac Surgery: No Section: Yes Cholecystectomy: No Ear Surgery: No Endocrine Surgery: No Eye Surgery: No Genitourinary Surgery: No Gynecologic Surgery: Yes (D&C,) Insulin Pump: No Joint Replacement: No Neurologic Surgery: No Oral Surgery: No Pacemaker: No Thoracic Surgery: No Tonsillectomy: Yes Other Surgery: Yes (bunionectomy, neck, spine, I&D on breast, ceasarian) Social History Alcohol Use: No Tobacco Use: Yes Substance Use: Yes (le ) Allergies-Medications (Allergen,Severity, Reaction): Coded Allergies: Iodinated Contrast- Oral and IV Dye (Unverified Allergy, Unknown, "LEGS TURN IN", 05/07/17) codeine (Unverified Adverse Reaction, Severe, NAUSEA & VOMITTING, 05/07/17 ) Reported Meds & Prescriptions Reported Meds & Active Scripts Active Clindamycin (Clindamycin HCl) 150 Mg Cap 450 Mg PO Q8HR 10 Days Ultram (Tramadol HCl) 50 Mg Tab 50 Mg PO Q6H PRN Bentyl (Dicyclomine HCl) 10 Mg Cap 10 Mg PO TID Morphine IR (Morphine Sulfate) 15 Mg Tab 15 Mg PO Q8HR PRN Reported Cymbalta DR (Duloxetine HCl) 60 Mg Capdr 60 Mg PO DAILY Cymbalta DR (Duloxetine HCl) 30 Mg Capdr 30 Mg PO HS Lisinopril 10 Mg Tab 10 Mg PO DAILY Trazodone (Trazodone HCl) 100 Mg Tablet 200 Mg PO HS Physical Exam Narrative GENERAL: Well-developed, well-nourished, alert female. Presenting in no acute distress. SKIN: Warm and dry. Linear erythema from the mid bicep to the right wrist. No edema noted, 2+ radial pulse. Lesion to right thumb on the palmar aspect. HEAD: Atraumatic. Normocephalic. EYES: Pupils equal and round. No scleral icterus. No injection or drainage. ENT: No nasal bleeding or discharge. Mucous membranes pink and moist. NECK: Trachea midline. No JVD. CARDIOVASCULAR: Regular rate and rhythm. RESPIRATORY: No accessory muscle use. Clear to auscultation. Breath sounds equal bilaterally. GASTROINTESTINAL: Abdomen soft, non-tender, nondistended. Hepatic and splenic margins not palpable. MUSCULOSKELETAL: Extremities without clubbing, cyanosis, or edema. No obvious deformities. NEUROLOGICAL: Awake and alert. No obvious cranial nerve deficits. Motor grossly within normal limits. Five out of 5 muscle strength in the arms and legs. Normal speech. PSYCHIATRIC: Appropriate mood and affect; insight and judgment normal. Data Data Last Documented VS Vital Signs Date Time Temp Pulse Resp B/P (MAP) Pulse Ox O2 Delivery O2 Flow Rate FiO2 11/06/17 20:36 97.8 53 16 150/84 (106) 97 Orders Orders Complete Blood Count With Diff (11/06/17 22:15) Comprehensive Metabolic Panel (11/06/17 22:15) Case Management Consult (11/06/17 ) Asp:No Reaction To [place]/Vanc (Asp Crit (11/06/17 22:15) Asp: Does Not Meet Inpt Admit (Asp Crit: (11/06/17 22:15) Asp: Iv Antibiotics Admit Only (Asp Crit (11/06/17 22:15) Asp: Location Of [place] Admin (Asp Crit: (11/06/17 22:15) Misc Pharmacy Information ([facility] [place] [facility] (11/06/17 22:15) [place] Inj (Dalvance Inj) (11/06/17 22:15) [place] Bandage (11/06/17 22:15) Elevate (11/06/17 22:15) Document (11/06/17 22:15) Measurements (11/06/17 22:15) Iv Access Insert/Monitor (11/06/17 22:15) Clindamycin 900 Mg/Ns Premix (Cleocin 90 (11/06/17 22:45) Ed Discharge Order (11/06/17 23:21) Labs Laboratory Tests Test 11/06/17 22:38 White Blood Count 7.6 TH/MM3 Red Blood Count 5.21 MIL/MM3 Hemoglobin 15.2 GM/DL Hematocrit 44.3 % Mean Corpuscular Volume 85.0 FL Mean Corpuscular Hemoglobin 29.2 PG Mean Corpuscular Hemoglobin Concent 34.4 % Red Cell Distribution Width 14.6 % Platelet Count 219 TH/MM3 Mean Platelet Volume 7.9 FL Neutrophils (%) (Auto) 56.9 % Lymphocytes (%) (Auto) 33.8 % Monocytes (%) (Auto) 6.4 % Eosinophils (%) (Auto) 1.7 % Basophils (%) (Auto) 1.2 % Neutrophils # (Auto) 4.3 TH/MM3 Lymphocytes # (Auto) 2.6 TH/MM3 Monocytes # (Auto) 0.5 TH/MM3 Eosinophils # (Auto) 0.1 TH/MM3 Basophils # (Auto) 0.1 TH/MM3 CBC Comment DIFF FINAL Differential Comment Blood Urea Nitrogen 18 MG/DL Creatinine 1.18 MG/DL Random Glucose 82 MG/DL Total Protein 7.3 GM/DL Albumin 3.5 GM/DL Calcium Level 9.2 MG/DL Alkaline Phosphatase 61 U/L Aspartate Amino Transf (AST/SGOT) 19 U/L Alanine Aminotransferase (ALT/SGPT) 20 U/L Total Bilirubin 0.4 MG/DL Sodium Level 143 MEQ/L Potassium Level 3.7 MEQ/L Chloride Level 110 MEQ/L Carbon Dioxide Level 27.6 MEQ/L Anion Gap 5 MEQ/L Estimat Glomerular Filtration Rate 46 ML/MIN MDM Medical Decision Making Medical Screen Exam Complete: Yes Emergency Medical Condition: Yes Interpretation(s) Vital Signs Date Time Temp Pulse Resp B/P (MAP) Pulse Ox O2 Delivery O2 Flow Rate FiO2 11/06/17 20:36 97.8 53 16 150/84 (140) 97 Differential Diagnosis Cellulitis versus abscess versus metabolic abnormality versus other Narrative Course Patient is a 67-year-old female presenting to the emergency department for evaluation of cellulitis to her right inner forearm. Labs ordered and pending. IV access ordered. Patient's vital signs are stable at this time. Patient will be given dose of clindamycin in the emergency department. Care of patient transferred to my attending physician who will determine patient's disposition. Scripts Clindamycin (Clindamycin) 150 Mg Cap 450 MG PO Q8HR for Infection for 10 Days, CAP 0 Refills Prov: Alexandro Logan MD 11/06/17 Sonam Andrade Nov 06, 2017 22:39
[2017-11-06] MEDS ORDERED: CLINDAMYCIN 900 MG/NS PREMIX 50 ML IV ONE (22:45)
[2017-11-06 22:48] LABS: AUTOMATED NEUTROPHIL # 4.3 TH/MM3 (1.8-7.7); BASOPHIL # 0.1 TH/MM3 (0-0.2); BASOPHIL % 1.2 % (0.0-2.0); EOSINOPHIL # 0.1 TH/MM3 (0-0.4); EOSINOPHIL % 1.7 % (0.0-4.0); HEMATOCRIT 44.3 % (35.0-46.0); HEMOGLOBIN 15.2 GM/DL (11.6-15.3); LYMPH % 33.8 % (9.0-44.0); LYMPHOCYTE # 2.6 TH/MM3 (1.0-4.8); MEAN CORPUSCULAR HEMOGLOBIN 29.2 PG (27.0-34.0); MEAN CORPUSCULAR HGB CONC 34.4 % (32.0-36.0); MEAN PLATELET VOLUME 7.9 FL (7.0-11.0); MONO % 6.4 % (0.0-8.0); MONOCYTE # 0.5 TH/MM3 (0-0.9); NEUT % 56.9 % (16.0-70.0); PLATELET COUNT 219 TH/MM3 (150-450); RED BLOOD COUNT 5.21 MIL/MM3 (4.00-5.30); RED CELL DISTRIBUTION WIDTH 14.6 % (11.6-17.2); WHITE BLOOD COUNT 7.6 TH/MM3 (4.0-11.0)
[2017-11-06 23:07] LABS: ALBUMIN 3.5 GM/DL (3.4-5.0); AST (GOT) 19 U/L (15-37); BICARBONATE 27.6 MEQ/L (21.0-32.0); BLOOD UREA NITROGEN 18 MG/DL (7-18); CALCIUM 9.2 MG/DL (8.5-10.1); CHLORIDE 110 MEQ/L (98-107); CREATININE 1.18 MG/DL (0.50-1.00); GLOMERULAR FILTRATION RATE 46 ML/MIN (>89); GLUCOSE,RANDOM 82 MG/DL (74-106); SODIUM (NA) 143 MEQ/L (136-145)
[2017-11-06 23:11] LABS: ALKALINE PHOSPHATASE 61 U/L (45-117); ALT (GPT) 20 U/L (10-53); TOTAL BILIRUBIN ADULT 0.4 MG/DL (0.2-1.0); TOTAL PROTEIN 7.3 GM/DL (6.4-8.2)
[2017-11-06] MEDS ORDERED: CLIN150C14 PO (23:20)
--- NOTE | 2017-11-06 23:21 | PD ---
Data Data Last Documented VS Vital Signs Date Time Temp Pulse Resp B/P (MAP) Pulse Ox O2 Delivery O2 Flow Rate FiO2 11/06/17 20:36 97.8 53 16 150/84 (106) 97 Orders Orders Complete Blood Count With Diff (11/06/17 22:15) Comprehensive Metabolic Panel (11/06/17 22:15) Case Management Consult (11/06/17 ) Asp:No Reaction To [place]/Vanc (Asp Crit (11/06/17 22:15) Asp: Does Not Meet Inpt Admit (Asp Crit: (11/06/17 22:15) Asp: Iv Antibiotics Admit Only (Asp Crit (11/06/17 22:15) Asp: Location Of [facility] Admin (Asp Crit: (11/06/17 22:15) [facility] [place] (11/06/17 22:15) [place]ancin Inj (Dalvance Inj) (11/06/17 22:15) Marin Bandage (11/06/17 22:15) Elevate (11/06/17 22:15) Document (11/06/17 22:15) Measurements (11/06/17 22:15) Iv Access Insert/Monitor (11/06/17 22:15) Clindamycin 900 Mg/Ns Premix (Cleocin 90 (11/06/17 22:45) Labs Laboratory Tests Test 11/06/17 22:38 White Blood Count 7.6 TH/MM3 Red Blood Count 5.21 MIL/MM3 Hemoglobin 15.2 GM/DL Hematocrit 44.3 % Mean Corpuscular Volume 85.0 FL Mean Corpuscular Hemoglobin 29.2 PG Mean Corpuscular Hemoglobin Concent 34.4 % Red Cell Distribution Width 14.6 % Platelet Count 219 TH/MM3 Mean Platelet Volume 7.9 FL Neutrophils (%) (Auto) 56.9 % Lymphocytes (%) (Auto) 33.8 % Monocytes (%) (Auto) 6.4 % Eosinophils (%) (Auto) 1.7 % Basophils (%) (Auto) 1.2 % Neutrophils # (Auto) 4.3 TH/MM3 Lymphocytes # (Auto) 2.6 TH/MM3 Monocytes # (Auto) 0.5 TH/MM3 Eosinophils # (Auto) 0.1 TH/MM3 Basophils # (Auto) 0.1 TH/MM3 CBC Comment DIFF FINAL Differential Comment Blood Urea Nitrogen 18 MG/DL Creatinine 1.18 MG/DL Random Glucose 82 MG/DL Total Protein 7.3 GM/DL Albumin 3.5 GM/DL Calcium Level 9.2 MG/DL Alkaline Phosphatase 61 U/L Aspartate Amino Transf (AST/SGOT) 19 U/L Alanine Aminotransferase (ALT/SGPT) 20 U/L Total Bilirubin 0.4 MG/DL Sodium Level 143 MEQ/L Potassium Level 3.7 MEQ/L Chloride Level 110 MEQ/L Carbon Dioxide Level 27.6 MEQ/L Anion Gap 5 MEQ/L Estimat Glomerular Filtration Rate 46 ML/MIN [facility] Medical Record Reviewed: Yes Supervised Visit with KATERIN: Yes Narrative Course CBC & BMP Diagram 11/06/17 22:38 Total Protein 7.3, Albumin 3.5, Calcium Level 9.2, Alkaline Phosphatase 61, Aspartate Amino Transf (AST/SGOT) 19, Alanine Aminotransferase (ALT/SGPT) 20, Total Bilirubin 0.4 The patient is resting comfortably and feels better, is alert and in no distress. The patients results and examination findings were discussed. The repeat examination is unremarkable and benign. The history, exam, diagnostic testing, and current condition do not suggest any significant pathology to warrant further testing, continued ED treatment, admission, or surgical evaluation at this point. The vital signs have been stable. The patient does not have uncontrollable pain, intractable vomiting, or other significant symptoms. The patient's condition is stable and appropriate for discharge. The patient will pursue further outpatient evaluation with a primary care physician or other designated or consulting physician as indicated in the discharge instructions. The patient expressed understanding and was agreeable with this plan. Diagnosis Primary Impression: Cellulitis of right arm Additional Impression: Lymphangitis Referrals: Primary Care Physician call for appointment Med/Other Pt SpecificInfo: Prescription(s) given Scripts Clindamycin (Clindamycin) 150 Mg Cap 450 MG PO Q8HR for Infection for 10 Days, CAP 0 Refills Prov: Alexandro Logan MD 11/06/17 Disposition: 01 DISCHARGE HOME Condition: Stable Alexandro Logan MD Nov 06, 2017 23:21
== END 2017-11-07 00:16 | disposition home or self-care (01) ==
LOC: NEPC 19:31
DX: L03.113 Cellulitis of right upper limb (principal); F41.9 Anxiety disorder, unspecified; F32.9 Major depressive disorder, single episode, unspecified; I10 Essential (primary) hypertension; J44.9 Chronic obstructive pulmonary disease, unspecified; Z72.0 Tobacco use
CPT/HCPCS: 80053; 85025; 96374

== ENCOUNTER 2017-12-19 15:35 | Emergency (ER) | payer MEDICARE, MEDICAID ==
[~2017-12-19 15:35] MED LIST changes: +CLIN150C14 PO
[2017-12-19 15:40] VITALS: BP 144/63; PULSE 94; RESP 16; TEMP 98.3; O2SAT 95
--- NOTE | 2017-12-19 16:49 | PD ---
HPI Chief Complaint: Anxiety Time Seen by Provider: 16:04 Travel History International Travel<30 days: No Contact w/Intl Traveler<30days: No Traveled to known affect area: No History of Present Illness HPI This 67-year-old woman presents to the emergency department complaining of an anxiety attack. She reports that she was arguing with her neighbors of her problems have been having recently and called the police. She states that she was crying and was not able to stop. She is a history of anxiety and depression. States she feels better now. History Past Medical History Narrative Medical Anxiety depression Liver failure Hepatitis C Kidney problems Menopausal: Yes Social History Alcohol Use: No Tobacco Use: Yes Allergies-Medications (Allergen,Severity, Reaction): Coded Allergies: Iodinated Contrast- Oral and IV Dye (Unverified Allergy, Unknown, "LEGS TURN IN", 05/07/17) codeine (Unverified Adverse Reaction, Severe, NAUSEA & VOMITTING, 05/07/17 ) Reported Meds & Prescriptions Reported Meds & Active Scripts Active Clindamycin (Clindamycin HCl) 150 Mg Cap 450 Mg PO Q8HR 10 Days Ultram (Tramadol HCl) 50 Mg Tab 50 Mg PO Q6H PRN Bentyl (Dicyclomine HCl) 10 Mg Cap 10 Mg PO TID Morphine IR (Morphine Sulfate) 15 Mg Tab 15 Mg PO Q8HR PRN Reported Cymbalta DR (Duloxetine HCl) 60 Mg Capdr 60 Mg PO DAILY Cymbalta DR (Duloxetine HCl) 30 Mg Capdr 30 Mg PO HS Lisinopril 10 Mg Tab 10 Mg PO DAILY Trazodone (Trazodone HCl) 100 Mg Tablet 200 Mg PO HS Review of Systems Except as stated in HPI: all other systems reviewed are Neg Physical Exam Narrative GENERAL: Well-appearing 67-year-old woman, no acute distress. Her tiny service dog is sitting in her lap. SKIN: Focused skin assessment warm/dry. HEAD: Atraumatic. Normocephalic. CARDIOVASCULAR: Regular rate and rhythm. No murmur appreciated. RESPIRATORY: No accessory muscle use. Clear to auscultation. Breath sounds equal bilaterally. GASTROINTESTINAL: Abdomen soft, non-tender, nondistended. Hepatic and splenic margins not palpable. MUSCULOSKELETAL: No obvious deformities. No clubbing. No cyanosis. No edema. NEUROLOGICAL: Awake and alert. No obvious cranial nerve deficits. Motor grossly within normal limits. Normal speech. PSYCHIATRIC: Anxious and tearful. Data Data Last Documented VS Vital Signs Date Time Temp Pulse Resp B/P (MAP) Pulse Ox O2 Delivery O2 Flow Rate FiO2 12/19/17 15:40 98.3 94 16 144/63 (90) 95 MDM Medical Decision Making Medical Screen Exam Complete: Yes Emergency Medical Condition: Yes Differential Diagnosis Anxiety attack, adjustment reaction, social stressors, other Narrative Course Medical decision making 67-year-old woman presents emergency department complaining anxiety attack, now resolved. Feels better. Recommend outpatient follow-up. Diagnosis Primary Impression: Anxiety attack Additional Instructions: Follow-up with your primary doctor. Return to the emergency department for any new or worsening symptoms. Disposition: 01 DISCHARGE HOME Condition: Stable Roel Kelley MD December 19, 2017 16:49
== END 2017-12-19 17:15 | disposition home or self-care (01) ==
LOC: NEPD 15:35
DX: F41.0 Panic disorder [episodic paroxysmal anxiety] (principal); Z72.0 Tobacco use
CPT/HCPCS: 99283